=== PATIENT | female | born 1955 | race Caucasian/White ===

== ENCOUNTER 2018-04-16 08:16 | Emergency (ER) | payer OTHER, SELFPAY ==
[2018-04-16 08:18] VITALS: BP 159/98; PULSE 84; RESP 16; TEMP 36.7; O2SAT 99; BMI 34.9
--- NOTE | 2018-04-16 08:35 | ED.DCSUM_ITS ---
- ER Visit Summary Date of Service: 04/16/18 Chief Complaint: Facial swelling History of Present Illness: The patient is a 62 F who states that on Tuesday she had a root canal on the right lower premolar region. She states that on Tuesday (yesterday) she began to have pain and swelling. She states that the swelling is spreading along her gums and she feels like she is slurring her words. She notes swelling along the mandible and down into her neck. She denies any fevers. 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 She notes that yesterday and today she has had vomiting. She has a penicillin allergy. Physical Examination: Afebrile vital signs are stable noted hypertension Gen: Well-nourished well-developed Head: Normocephalic atraumatic Eyes: Perrl EOMI ENT: TMs clear no rhinorrhea moist mucous membranes the patient has no drooling. She is able to open her mouth and pull her lip to the side. I do not see a focal drainable abscess around the right lower premolar teeth. I do not appreciate any significant gum swelling. The floor the mouth is soft. There is swelling on the outside of the face at the mandible level. Neck: Supple no lymphadenopathy no JVD nontender CVS: Regular rate rhythm no murmurs normal S1-S2 Respiratory: No distress clear to auscultation bilaterally chest nontender Abdomen: Soft nontender nondistended normal bowel sounds no masses Extremity: Nontender no edema Skin: Normal color no rash Neuro: alert orientated ?3 CN II-XII intact normal strength gait cerebellar myself and nursing do not appreciate slurred speech that the patient is reporting. Emergency Department Course and Treatment: Patient will be started on clindamycin as well as Zofran. The patient feels that this is a wasted trip that she could have gotten a prescription from her doctor. Patient feels that something more should be done. She however does not know what that should be. At this point I do not know what more the emergency department can offer her. She is to see her dentist tomorrow. Impression: 1. Right lower tooth periapical abscess This note was generated with [employer] dictation software. It may contain incorrect words, spelling, and punctuation that were not noted in review of the chart prior to signing ED Disposition - Plan for ED Patient: Disposition: Home or Assisted Living Chief Complaint: Dental Instructions: ED Abscess Dental Prescriptions: Ondansetron [Zofran Odt] 4 mg PO Q8H PRN PRN #10 tab PRN Reason: Nausea Clindamycin HCl [Cleocin] 300 mg PO Q6H #40 cap Referrals: Gerardo Diana MD [Primary Care Provider] - Additional Instructions: See your dentist as soon as possible
--- NOTE | 2018-04-16 08:44 | NURSING ---
NO LW OR POA
== END 2018-04-16 09:00 | disposition home or self-care (01) ==
LOC: ED 08:43
PROVIDERS: Emergency Provider Emergency Medicine; Family Provider Family Medicine; PCP Family Medicine
DX: K04.7 Periapical abscess without sinus (principal); R11.2 Nausea with vomiting, unspecified; E11.9 Type 2 diabetes mellitus without complications; I10 Essential (primary) hypertension; K21.9 Gastro-esophageal reflux disease without esophagitis; M54.5 Low back pain; Z79.82 Long term (current) use of aspirin; Z79.899 Other long term (current) drug therapy; Z88.0 Allergy status to penicillin
CPT/HCPCS: 99282

== ENCOUNTER → 2019-08-31 09:32 | Outpatient (CLI) | payer OTHER, SELFPAY ==
--- NOTE | 2019-08-31 09:35 | RAD_ITS ---
PROCEDURE: Fluoroscopic guided right shoulder Injection DATE: August 31, 2019. INDICATION: Female, 63 years old. Chronic right shoulder pain. PHYSICIAN: René Wright M.D. MEDICATIONS: 12 mg of betamethasone and 4 cc of 1% lidocaine. 2% lidocaine administered subcutaneously for local anesthesia. ACCESS SITE: Right shoulder. NEEDLE: 22-gauge spinal needle. FLUOROSCOPY TIME (if supplied): (0:55) minutes/seconds FINDINGS: The risks, benefits, and alternatives to the procedure were explained to the patient. The specific risks of bleeding, infection, and neurovascular injury were detailed and accepted. Witnessed informed consent was obtained. A 22-gauge spinal needle was positioned under radiographic fluoroscopic localization. Approximately 2 cc of Isovue-300 instilled for localization purposes. Medication was then injected. The patient tolerated the procedure well without any immediate complications. The patient was placed supine with head elevated and returned to the floor in stable condition. RAD/Inj/Asp Aries Jt Should/Hip/Knee IMPRESSION: 1. Successful fluoroscopic guided right shoulder injection. Electronically Signed: René Wright, at 10:24 EST , Service support ,
== END ==
PROVIDERS: Family Provider Family Medicine; PCP Family Medicine; Referring Provider Specialist; Visit Provider Specialist
DX: M19.011 Primary osteoarthritis, right shoulder (principal); G89.29 Other chronic pain
CPT/HCPCS: 20610; 77002; J0702

== ENCOUNTER → 2019-12-21 08:50 | Outpatient (CLI) | payer OTHER, SELFPAY ==
--- NOTE | 2019-12-21 08:55 | RAD_ITS ---
PROCEDURE: Fluoroscopic guided right shoulder Injection DATE: December 21, 2019. INDICATION: Female, 64 years old. Chronic right shoulder pain. PHYSICIAN: René Wright M.D. MEDICATIONS: 12 mg of betamethasone and 4 cc of 1% lidocaine. 2% lidocaine administered subcutaneously for local anesthesia. ACCESS SITE: Right shoulder. NEEDLE: 22-gauge spinal needle. FLUOROSCOPY TIME (if supplied): (0:30) minutes/seconds FINDINGS: The risks, benefits, and alternatives to the procedure were explained to the patient. The specific risks of bleeding, infection, and neurovascular injury were detailed and accepted. Witnessed informed consent was obtained. A 22-gauge spinal needle was positioned under radiographic fluoroscopic localization. Approximately 2 cc of Isovue-300 instilled for localization purposes. Medication was then injected. The patient tolerated the procedure well without any immediate complications. RAD/Inj/Asp Aries Jt Should/Hip/Knee IMPRESSION: 1. Successful fluoroscopic guided right shoulder injection. Electronically Signed: René Wright, at 10:34 EST , Service support ,
== END ==
PROVIDERS: PCP Family Medicine; Referring Provider Specialist; Visit Provider Specialist
DX: M19.011 Primary osteoarthritis, right shoulder (principal)
CPT/HCPCS: 20610; 77002; Q9965; J0702

== ENCOUNTER → 2020-04-08 09:27 | Outpatient (CLI) | payer OTHER, SELFPAY ==
[2020-04-08 06:34] VITALS: BMI 34.8
[2020-04-08 09:49] LABS: Absolute Lymphocyte Count 1.85 X10^3/uL (0.83-4.51); Absolute Neutrophil Count 3.1 X10^3/uL (2.0-7.7); Basophil# 0.05 X10^3/uL; Basophil% 0.9 % (0-1); Eosinophil# 0.13 X10^3/uL; Eosinophils% 2.2 % (0-5); Hematocrit 39.6 % (37-47); Hemoglobin 12.4 g/dL (12.0-15.0); Lymphocyte # 1.85 X10^3/ul (4.0); Mean Corp Hgb Conc 31.3 g/dL (32-36); Mean Corpuscular Hgb 28.8 pg (27.0-32.0); Mean Corpuscular Volume 91.9 fL (81-99); Mean Platelet Vol. 9.3 fl (6.2-12.0); Monocyte# 0.61 X10^3/uL; Monocyte% 10.5 % (0-10); NRBC Flagged by Analyzer 0 % (0-5); Neutrophil # 3.14 X10^3/uL (2.7-7.7); Neutrophil % 54.2 % (47-70); Platelet Count 293 K/mm3 (150-450); RBC Distribution Width CV 13.1 % (11.6-14.6); RBC Distribution Width SD 44.1 fl (35.1-43.9); Red Blood Count 4.31 M/mm3 (4.2-5.4); White Blood Count 5.8 K/mm3 (4.4-11.0)
[2020-04-11 03:06] LABS: Alternaria tenuis <0.10 kU/L (Class 0); Ash, White <0.10 kU/L (Class 0); Aspergillus fumigatus <0.10 kU/L (Class 0); Bermuda Grass <0.10 kU/L (Class 0); Birch <0.10 kU/L (Class 0); Black Walnut <0.10 kU/L (Class 0); Cat Hair / Dander,Stand <0.10 kU/L (Class 0); Cedar, Mountain <0.10 kU/L (Class 0); Cladosporium herbarum <0.10 kU/L (Class 0); Cockroach, American <0.10 kU/L (Class 0); Cottonwood <0.10 kU/L (Class 0); D farinae Mite <0.10 kU/L (Class 0); D pteronyssinus <0.10 kU/L (Class 0); Dog Epithelia <0.10 kU/L (Class 0); Elm, American White <0.10 kU/L (Class 0); Immunoglobulin E 6 IU/mL (6-495); Maple/Box Elder <0.10 kU/L (Class 0); Mulberry, White <0.10 kU/L (Class 0); Oak, White <0.10 kU/L (Class 0); Pecan <0.10 kU/L (Class 0); Penicillium Notatum <0.10 kU/L (Class 0); Pigweed, Rough <0.10 kU/L (Class 0); Ragweed, Short/Common <0.10 kU/L (Class 0); Russian Thistle <0.10 kU/L (Class 0); Sheep Sorrel <0.10 kU/L (Class 0); Sycamore, American <0.10 kU/L (Class 0); Timothy Grass <0.10 kU/L (Class 0)
[2020-04-11 04:15] LABS: Mouse Urine <0.10 kU/L (Class 0)
[2020-04-12 03:06] LABS: Aspirgillus flavus Negative (Neg:<1:1); Aspirgillus fumigatus Negative (Neg:<1:1); Aspirgillus niger Negative (Neg:<1:1)
[2020-04-12 12:21] LABS: B. pertussis IgG 3.68 index (0.00-0.94); B. pertussis IgM < 1.0 index (0.0-0.9); Immunoglobulin E 6 IU/mL (6-495)
== END ==
PROVIDERS: PCP Family Medicine; Referring Provider Internal Medicine Critical Care Medicine; Visit Provider Internal Medicine Critical Care Medicine
DX: R05 Cough (principal)
CPT/HCPCS: 36415; 82785; 85025; 86003; 86606

== ENCOUNTER → 2020-04-22 08:27 | Outpatient (CLI) | payer OTHER, SELFPAY ==
[2020-04-08 06:34] VITALS: BMI 34.8
[2020-04-11 09:00] VITALS: BMI 34.8
--- NOTE | 2020-04-22 14:19 | PFTCOMP ---
COMPLETE PULMONARY FUNCTION TEST INTERPRETATION Brief HPI: Patient is a 64 year old female, currently under the care of Dr. Williamson, who presents to [facility] for complete pulmonary function tests secondary to diagnosis of cough. Respiratory therapist reports good effort and reproducible results. Interpretation: Forced expiration spirometry shows no large airways obstructive ventilatory defect with an FEV1 of 80% predicted. There is no significant bronchodilator response by strict ATS criteria. Spirograms are of good quality and plateau normally. The respiratory flow volume loop shows a normal pattern. Lung volumes by body plethysmography show a normal total lung capacity at 5.64 L, 96% predicted. All other lung volumes are within normal limits. Diffusion capacity by carbon monoxide is decreased at 54% predicted. The airway resistance is normal. No previous pulmonary function tests were available for review. Impression: Isolated reduction diffusion capacity and a pattern consistent with pulmonary vascular disorder.
== END ==
PROVIDERS: PCP Family Medicine; Referring Provider Internal Medicine Critical Care Medicine; Visit Provider Internal Medicine Critical Care Medicine
DX: R05 Cough (principal)
CPT/HCPCS: 94060; 94726; 94729

== ENCOUNTER 2020-05-02 07:16 | Day surgery (SDC) | payer OTHER, SELFPAY ==
[2020-04-11 09:00] VITALS: BMI 34.8
--- NOTE | 2020-04-11 09:10 | HP_ITS ---
Intake Vital Signs 04/11/20 BMI 34.8 04/11/20 Height 5 ft 9 in 04/11/20 Weight: 236 lb 04/11/20 BMI 34.8 04/11/20 BP 149/83 H 04/11/20 Blood Pressure Location Rt brachial 04/11/20 Position Sitting 04/11/20 Respiration 18 04/11/20 Pulse 65 04/11/20 Pulse Source Monitor 04/11/20 Temp 98.0 F 04/11/20 Temp Source Temporal 04/11/20 Pulse Oximetry (%) 97 04/11/20 Oxygen Delivery Method room air Intake Visit Reasons: GERD, EGD Chief Complaint: L total Shoulder Coupon Clerk Required: No Is patient in pain?: No Allergies adhesive tape Allergy (Verified 04/11/20 08:53) blisters hydromorphone HCl [From Dilaudid] Allergy (Verified 04/11/20 08:53) Hives latex Allergy (Verified 04/11/20 08:53) Rash Penicillins Allergy (Verified 04/11/20 08:53) Hives codeine Adverse Reaction (Verified 04/11/20 08:53) Nausea Medications Meloxicam [Mobic] 15 mg PO DAILY PRN 08/05/17 [History Confirmed 04/11/20] Omeprazole 40 mg PO DAILY 08/05/17 [History Confirmed 04/11/20] metformin 500 mg tablet 500 mg PO DAILY 04/07/20 [History Confirmed 04/11/20] albuterol sulfate 90 mcg/actuation aerosol inhaler 2 puff INHALATION Q4H PRN #1 ea 04/08/20 [Rx Confirmed 04/11/20] fluticasone furoate 200 mcg-vilanterol 25 mcg/dose inhalation powder 1 inh INHALATION DAILY #1 ea 04/08/20 [Rx Confirmed 04/11/20] levothyroxine 112 mcg tablet 112 mcg PO DAILY tab 04/08/20 [History Confirmed 04/11/20] losartan 50 mg tablet 50 mg PO DAILY 04/08/20 [History Confirmed 04/11/20] gabapentin 300 mg capsule 300 mg PO QHS cap 04/11/20 [History Confirmed 04/11/20] PFSH Medical History Ulcer (Acute) Hx of blood clots (Acute) Thyroid disorder (Acute) Arthritis (Acute) Dysphagia (Acute) Chronic coughing (Chronic) Fatigue (Acute) Vaginal prolapse (Acute) Snoring (Acute) Severe vulvar dysplasia (Acute) Lumbosacral neuritis (Acute) Disc displacement, lumbar (Acute) Hypothyroidism (Acute) DVT (deep venous thrombosis) (Acute) Diabetes mellitus (Acute) Valdez's esophageal ulceration (Acute) Backache, unspecified (Acute) Acute esophagitis (Acute) Surgical History History of vulvar vestibulectomy (Resolved) History of hysterectomy (Resolved) History of shoulder surgery (Resolved) History of tonsillectomy (Resolved) History of sacrocolpopexy (Resolved) History of esophagogastroduodenoscopy (EGD) (Resolved) biopsy of vulva (Resolved) Family History Mother Cataract Cancer Liver Father Diabetes Hypertension Heart disease Cataract Cancer Lung Sister Diabetes DVT (deep venous thrombosis) CVA (cerebral vascular accident) Heart disease Brother Diabetes Aunt Cancer Thyroid Social History (Updated 04/11/20 @ 09:[address] Trell Roy MD) Smoking Status: Former smoker quit date: 08/15/13 pack-years: 1 Tobacco: How many years used: 25 alcohol intake: current alcohol intake frequency: a few times a week Alcohol type: beer, wine substance use type: does not use caffeine: Yes what type of physical activity do you participate in: other frequency: does not exercise seatbelt use: always HPI HPI HPI: RODRÍGUEZ KOWALSKI, is a 64 F who presents to the office today for HPI HPI Surgical H&P: Yes HPI: RODRÍGUEZ KOWALSKI, is a 64 F who presents to the office today for GERD as well as a cough. The patient was sent here by pulmonary because she has an ongoing cough which he believes is related to reflux. She reports the cough gets worse in the spring and fall but she has never taken any allergic medicines. She is on a daily PPI that she has been recently taking twice daily and she has severe reflux especially with acidic foods. She also reports occasional regurgitation especially when laying down and waking up in the morning. ROS General General: Yes weight change and fatigue Endo Endocrine: Yes thyroid disease and diabetes mellitus Musc Musculoskeletal: Yes back problems and arthritis Cardio Cardiovascular: Yes high blood pressure; no murmur, pacemaker, heart disease, atrial fibrillation, heart attack, heart stent, palpitations, shortness of breat with exertion or chest pain Psych Psychiatric: No depression or anxiety Resp Respiratory: No shortness of breath, No sleep apnea, Yes cough, No COPD, No asthma, No emphysema, No wheezing Gastro Gastrointestinal: No abdominal pain, No nausea or vomiting, No diarrhea, No constipation, No blood in stool, Yes acid reflux, No hemorrhoids, Yes ulcers, No gallbladder problem, No black,tarry stools Jaime Hematologic: No blood thinners, Yes blood clots Exam Const General: cooperative Orientation: alert, oriented x3 Resp Effort & Inspection: normal respiratory effort Auscultation: clear to auscultation bilaterally Cardio Rate: regular rate Rhythm: regular rhythm Heart Sounds: no murmurs GI Inspection: non-distended Palpation: soft, nontender Assessment & Plan Problems 1. 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 Gastroesophageal reflux disease with esophagitis K21.0 Plan Patient has longstanding GERD. She takes a PPI and she has been taking it twice a day lately. She reports that she had an EGD about 5 years ago. She was found to have Valdez's the EGD prior to that. She is having cough as well and pulmonology believes this may be related to her reflux. I informed her that the best thing she would be able to do would be to lose some weight and that would help with GERD. I did offer the patient an EGD to evaluate for esophagitis as well as Valdez's esophagus. I explained endoscopy in detail to the patient. I explained the risks including but not limited to stroke or heart attack with anesthesia, perforation of the GI tract, bleeding, infection. I explained that any of these could necessitate further emergency surgery. The patient understands and all questions were answered sufficiently. The patient wishes to proceed with procedure. 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 delaying the surgery/procedure. It is not possible to know either the risk of delaying the surgery or procedure or chance of getting an infection with perfect accuracy, but a joint decision was made between the patient and the surgeon/proceduralist ?to proceed at this time with the scheduled surgery/procedure as indicated on the consent form. 04/11/20 0910 <Electronically signed by Trell west MD> Date _ Trell Roy MD I have re-examined the patient. There are no clinical changes since date of exam.
[2020-05-02] VITALS (7 sets, daily range): BP systolic 120–128; BP diastolic 60–79; PULSE 16–73; RESP 14–16; TEMP 36.1; O2SAT 94–96; BMI 33.8
[2020-05-02] MEDS: Lactated Ringers 1,000 ML 100 ML IV (08:14)
[2020-05-02 08:30] LABS: Bedside Glucose 114 mg/dL (70-110)
--- NOTE | 2020-05-02 08:30 | IMM_PTH ---
PATIENT: RODRÍGUEZ KOWALSKI LOC: EN U#:[id number] AGE/SX: 64/F ROOM: RE05/02/[address]: Dr. Trell Roy MD : 1955 BED: DIS: 05/02/2020 SPEC #: [id number] RECD: 05/02/20 13:11 STATUS: AINSLEY REQ #: [id number] ANGELITO: 05/02/20 08:[address]: Trell Roy DEPT: IMMUNOHISTOCHEMISTRY RECD BY: Deanna Garrett ENTERED: 05/02/20 13:11 SP TYPE: IMMUNO OTHR DR: Dr. Gerardo Diana MD Tissues: Stomach, NOS Procedures: H Pylori (initial) PHYSICIAN & INSTITUTION [place] [address] SPECIMEN INFORMATION: Tissue Source: Antrum biopsy Clinical Info: GERD, Valdez's Specimen Number: [id number] CPT code: 26765 METHODOLOGY: Deparaffinized sections of prefer/formalin-fixed tissue or PAP/DQ stained slides are incubated with monoclonal/polyclonal antibodies/oligonucleotide probes. Localization is made via biotin free immunoperoxidase method. Appropriate controls are performed and reacted as expected. Results on target cell population are indicated in the following table: RESULTS: ANTIBODY / CLONE RESULT H Pylori (polyclonal) negative These tests were developed and their performance characteristics determined by [facility]. They may not have been cleared or approved by the U.S. Food and Drug Administration. The FDA has determined that such clearance or approval is not necessary. INTERPRETATION: Antrum biopsy: Negative for Helicobacter pylori organisms. SJ:derrick 05/05/20
--- NOTE | 2020-05-02 08:30 | EGD_PTH ---
PATIENT: RODRÍGUEZ KOWALSKI LOC: EN U#:[id number] AGE/SX: 64/F ROOM: RE05/02/[address]: Dr. Trell Roy MD : 1955 BED: DIS: 05/02/2020 SPEC #: [id number] RECD: 05/02/20 11:24 STATUS: AINSLEY TIFFANY #: [id number] ANGELITO: 05/02/20 08:[address]: Trell Roy DEPT: SURGICAL PATHOLOGY RECD BY: Ed Montes ENTERED: 05/02/20 11:54 SP TYPE: EGD BIOPSY OTHR DR: Dr. Gerardo Diana MD Tissues: Gastric mucous membrane Procedures: Surgery Specimen Level IV HEADER OPERATION: EGD ([facility]) PRE-OP DIAGNOSIS: GERD, Valdez's TISSUE SUBMITTED: Antrum biopsy for histo and H. pylori MICROSCOPIC DIAGNOSIS Gastric antrum, biopsy: Mild chronic gastritis. See comment. AM:derrick 05/05/20 COMMENT The results of immunohistochemistry for Helicobacter pylori will be reported separately ([id number]). MICROSCOPIC DESCRIPTION Slides are reviewed. GROSS DESCRIPTION Received in fixative is one container labeled with the patient's name and designated antrum biopsy. The specimen consists of two irregular fragments of light hall soft tissue that in aggregate measure 0.6 x 0.4 x 0.1 cm. The specimen is totally submitted in one cassette. / SJ:derrick 05/02/20 TC:3 CPT: 25175
--- NOTE | 2020-05-02 08:43 | OP.CCLET_ITS ---
05/02/2020 Gerardo Diana [address] [place] [address] Re : Upper GI endoscopy procedure for Danielle Pink Dear Dr. Diana This procedure was performed on Saturday, May 02, 2020. My impressions and recommendations are as follows: Impressions : - Normal esophagus. - Normal stomach. - Normal examined duodenum. - Biopsies were taken with a cold forceps for Helicobacter pylori testing. Recommendations : - Await pathology results. - Discharge patient to home. - Resume previous diet. - Continue present medications. My findings are described in the full procedure note, which is enclosed. If I can be of further assistance, please feel free to contact me at Doctor phone number(s): , Work: . Sincerely, Trell Roy MD 05/02/2020 8:42:45 AM This report has been signed electronically.
--- NOTE | 2020-05-02 08:43 | OP.EGD_ITS ---
Patient Name: Danielle Pink Procedure Date: 05/02/2020 8:20 AM Date of : 1955 Age: 64 Procedure: Upper GI endoscopy Indications: Esophageal reflux Providers: Trell Roy MD Referring MD: Gerardo Diana Medicines: Monitored Anesthesia Care Patient Profile: This is a 64 year old female. Refer to note in patient chart for documentation of history and physical. Complications: No immediate complications. Estimated blood loss: Minimal. Procedure: Pre-Anesthesia Assessment: - Prior to the procedure, a History and Physical was performed, and patient medications and allergies were reviewed. The patient's tolerance of previous anesthesia was also reviewed. The risks and benefits of the procedure and the sedation options and risks were discussed with the patient. All questions were answered, and informed consent was obtained. Prior Anticoagulants: The patient has taken no previous anticoagulant or antiplatelet agents. After reviewing the risks and benefits, the patient was deemed in satisfactory condition to undergo the procedure. After obtaining informed consent, the endoscope was passed under direct vision. Throughout the procedure, the patient's blood pressure, pulse, and oxygen saturations were monitored continuously. The gastroscope was introduced through the mouth, and advanced to the third part of duodenum. The upper GI endoscopy was accomplished without difficulty. The patient tolerated the procedure well. Scope In: 8:32:11 AM Scope Out: 8:35:44 AM Total Procedure Duration Time 0 hours 3 minutes 33 seconds Findings: The esophagus was normal. The stomach was normal. The examined duodenum was normal. Biopsies were taken with a cold forceps in the gastric antrum for Helicobacter pylori testing. A small hiatal hernia was present. Impression: - Normal esophagus. - Normal stomach. - Normal examined duodenum. - Biopsies were taken with a cold forceps for Helicobacter pylori testing. Recommendation: - Await pathology results. - Discharge patient to home. - Resume previous diet. - Continue present medications. Procedure Code(s): --- Professional --- 52705, Esophagogastroduodenoscopy, flexible, transoral; with biopsy, single or multiple Diagnosis Code(s): --- Professional --- K21.9, Gastro-esophageal reflux disease without esophagitis CPT copyright 2017 [employer]. All rights reserved. The codes documented in this report are preliminary and upon laserist review may be revised to meet current compliance requirements. Trell Roy MD 05/02/2020 8:42:45 AM This report has been signed electronically. Number of Addenda: 0 Note Initiated On: 05/02/2020 8:20 AM
== END 2020-05-02 09:35 | disposition home or self-care (01) ==
LOC: EN 07:16 → AC 07:18
PROVIDERS: Anesthesiology; PCP Family Medicine; Referring Provider Family Medicine; Visit Provider Surgery
PROC: 0DJ08ZZ Inspection of Upper Intestinal Tract, Via Natural or Artificial Opening Endoscopic (ICD-10-PCS; CPT 43235; principal; 2020-05-02 08:25)
DX: K29.50 Unspecified chronic gastritis without bleeding (principal); K22.10 Ulcer of esophagus without bleeding; K21.0 Gastro-esophageal reflux disease with esophagitis; K44.9 Diaphragmatic hernia without obstruction or gangrene; R13.10 Dysphagia, unspecified; Z11.59 Encounter for screening for other viral diseases; R05 Cough; E11.9 Type 2 diabetes mellitus without complications; I10 Essential (primary) hypertension; E07.9 Disorder of thyroid, unspecified; Z79.84 Long term (current) use of oral hypoglycemic drugs; Z79.1 Long term (current) use of non-steroidal anti-inflammatories (NSAID); Z79.899 Other long term (current) drug therapy; Z78.0 Asymptomatic menopausal state; Z86.711 Personal history of pulmonary embolism; Z86.718 Personal history of other venous thrombosis and embolism; Z87.891 Personal history of nicotine dependence
CPT/HCPCS: 43239; 82962; 87635; 88305; 88342; G2023; J7120; J2405; U0003

== ENCOUNTER → 2020-05-09 10:37 | Outpatient (CLI) | payer OTHER, SELFPAY ==
[2020-05-02 07:54] VITALS: BMI 33.8
== END ==
PROVIDERS: PCP Family Medicine; Referring Provider Internal Medicine Critical Care Medicine; Visit Provider Internal Medicine Critical Care Medicine
DX: R05 Cough (principal)
CPT/HCPCS: 36415; 87070; 87798

== ENCOUNTER → 2020-05-23 14:24 | Outpatient (CLI) | payer OTHER, SELFPAY ==
[2020-05-02 07:54] VITALS: BMI 33.8
[2020-05-24 08:55] LABS: SARS-COV-2 TOTAL ABS Nonreactive (Nonreactive)
== END ==
PROVIDERS: PCP Family Medicine; Referring Provider Nurse Practitioner Acute Care; Visit Provider Nurse Practitioner Acute Care
DX: R05 Cough (principal)
CPT/HCPCS: 36415; 86769

== ENCOUNTER → 2020-06-04 14:08 | Outpatient (CLI) | payer OTHER, SELFPAY ==
[2020-05-02 07:54] VITALS: BMI 33.8
--- NOTE | 2020-06-04 14:09 | RAD_ITS ---
STUDY: X-RAY CHEST REASON FOR EXAM: Female, 64 years old. Cough, shortness of breath, and chest pressure since November. TECHNIQUE: PA and lateral views of the chest. COMPARISON: None. FINDINGS: The lungs are clear and expanded. There is no demonstrated pleural abnormality. Normal size heart. Normal mediastinum and jenaro. Normal visualized pulmonary arteries. Normal visualized aortic arch and descending thoracic aorta. There are diffuse degenerative changes of the visualized thoracic spine. Degenerative arthrosis in the right shoulder, replaced left glenohumeral joint free of complication There is no demonstrated abnormality of the visualized soft tissue structures of the upper abdomen. RAD/Chest PA and Lateral IMPRESSION: No acute pulmonary process Electronically Signed: Kei Cordova MD at 14:44 EDT , Service support ,
== END ==
PROVIDERS: PCP Family Medicine; Referring Provider Nurse Practitioner Acute Care; Visit Provider Nurse Practitioner Acute Care
DX: R05 Cough (principal)
CPT/HCPCS: 71046

== ENCOUNTER → 2020-06-13 06:38 | Outpatient (CLI) | payer OTHER, SELFPAY ==
[2020-05-02 07:54] VITALS: BMI 33.8
--- NOTE | 2020-06-13 06:39 | CT_ITS ---
STUDY: CT CHEST WITHOUT CONTRAST REASON FOR EXAM: Female, 64 years old. COUGH AND SOB X 3 MONTHS RADIATION DOSAGE (If Supplied By Facility): CTDIvol = ( 19.89 ) mGy, DLP = ( 740.44 ) mGycm TECHNIQUE: Transaxial imaging was performed without the administration of intravenous contrast material. Multiplanar coronal and sagittal images were reformatted. Individualized dose optimization techniques were used for this CT. COMPARISON: Comparison is made with prior chest radiograph dated 06/04/2020. FINDINGS: Small benign-appearing bilateral axillary lymph nodes. Minimal increase in markings at the lung bases suggestive of a mild scarring. There is no demonstrated pleural abnormality. There are calcifications of the coronary arteries. There are multiple small lymph nodes within the mediastinum, which are normal in size and morphology most compatible with reactive lymph hyperplasia. Normal hilar regions. Normal unenhanced pulmonary arteries. There is mild atherosclerotic calcification of the aortic arch . There are mild degenerative changes of the thoracic spine. The patient is status post left shoulder replacement. Fatty infiltration of the liver. Small hiatal hernia. CT/Chest without Contrast IMPRESSION: Mild degree of linear scarring at the lung bases. Electronically Signed: René Wright, at 9:53 EDT , Service support ,
== END ==
PROVIDERS: PCP Family Medicine; Referring Provider Nurse Practitioner Acute Care; Visit Provider Nurse Practitioner Acute Care
DX: R05 Cough (principal)
CPT/HCPCS: 71250

== ENCOUNTER → 2020-06-24 07:49 | Outpatient (CLI) | payer OTHER, SELFPAY ==
[2020-05-02 07:54] VITALS: BMI 33.8
[2020-06-24 08:15] VITALS: PULSE 65; PULSE 74; PULSE 91; PULSE 92; PULSE 93; PULSE 96; O2SAT 94; O2SAT 95; O2SAT 96
--- NOTE | 2020-06-24 13:51 | PCM.PSN.6M ---
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 FIO2 (% Oxygen) 21 Assistive device used: None Pre-test Oxygen Delivery Method Room Air Pulse Ox (%) 95 Pulse Rate (60-100 beats/min) 65 Dyspnea Madeleine Scale (0-10) 0 Exertion Madeleine Scale (6-20) 6 1st minute Oxygen Delivery Method Room Air Pulse Ox (%) 94 Pulse Rate (60-100 beats/min) 91 2nd minute Oxygen Delivery Method Room Air Pulse Ox (%) 95 Pulse Rate (60-100 beats/min) 92 3rd minute Oxygen Delivery Method Room Air Pulse Ox (%) 94 Pulse Rate (60-100 beats/min) 92 4th minute Oxygen Delivery Method Room Air Pulse Ox (%) 95 Pulse Rate (60-100 beats/min) 96 5th minute Oxygen Delivery Method Room Air Pulse Ox (%) 95 Pulse Rate (60-100 beats/min) 92 6th minute Oxygen Delivery Method Room Air Pulse Ox (%) 95 Pulse Rate (60-100 beats/min) 93 Post-test Oxygen Delivery Method Room Air Pulse Ox (%) 96 Pulse Rate (60-100 beats/min) 74 Dyspnea Madeleine Scale (0-10) 2 Exertion Madeleine Scale (6-20) 10 Full Laps Walked 21 Partial Lap, Number of Tiles Walked 0 Total Distance Walked (ft) 1239 - Interpretation Interpretation: The patient ambulated 1239 feet over the course of 6 minutes beginning on room air without assistive devices or breaks. Pretesting oxygen saturation was noted to be 95% on room air. With ambulation, the anna oxygen saturation was 94%. There was no significant exertional oxygen desaturation. - Recommendations Recommendations: There is no indication for the use of supplemental oxygen at this time.
== END ==
PROVIDERS: PCP Family Medicine; Referring Provider Nurse Practitioner Acute Care; Visit Provider Nurse Practitioner Acute Care
DX: R06.02 Shortness of breath (principal)
CPT/HCPCS: 94618

== ENCOUNTER → 2020-06-27 12:24 | Outpatient (CLI) | payer OTHER, SELFPAY ==
[2020-05-02 07:54] VITALS: BMI 33.8
--- NOTE | 2020-06-27 12:26 | CT_ITS ---
STUDY: CT RIGHT SHOULDER REASON FOR EXAM: Female, 64 years old. RT SHOULDER REPLACEMENT surgery scheduled 09/02/20. Pt has lt shoulder replacement already. RADIATION DOSAGE (If Supplied By Facility): CTDIvol = ( 29.12 ) mGy, DLP = ( 1144.40 ) mGycm TECHNIQUE: The patient was scanned in a multi detector CT scanner. High resolution transaxial imaging was performed without the administration of intravenous contrast material. Sagittal and coronal images were reconstructed. Individualized dose optimization techniques were used for this CT. COMPARISON: None. FINDINGS: There is severe osteoarthritis, with severe articular joint space narrowing, osteoarthritic spurring, articular remodeling, and with articular erosions. Subchondral geodes are seen in the humeral head as well as in the subcortical region of the glenoid. Degenerative spurring is seen along the inferior medial aspect of the humeral head as well as the anterior aspect of the glenoid. Normal coracoid process. Normal visualized lateral clavicle. There is mild osteoarthritis with articular joint space narrowing. There is a Type II morphology (curved), with a neutral orientation. Normal visualized muscles and soft tissue structures. CT/Extremity Upper without Contra IMPRESSION: Moderate degree of osteoarthritis involving the glenohumeral joint with bony spur formation of the humeral head and the glenoid. Mild degree of degenerative changes of the common clavicular joint. Electronically Signed: René Wright, at 13:06 EDT , Service support ,
== END ==
PROVIDERS: PCP Family Medicine; Referring Provider Specialist; Visit Provider Specialist
DX: M19.011 Primary osteoarthritis, right shoulder (principal)
CPT/HCPCS: 73200

== ENCOUNTER → 2022-05-26 | Outpatient (CLI) | payer OTHER, SELFPAY ==
--- NOTE | 2022-05-26 15:04 | US_ITS ---
RENAL ULTRASOUND CLINICAL HISTORY: UTI. TECHNIQUE: Verdugo scale and limited color imaging of the kidneys, bladder, inferior vena cava, and aorta. COMPARISON: None FINDINGS: The right kidney measures 10.4 cm. The echogenicity is normal. There is no hydronephrosis or perinephric collection. There is no focal renal mass or calculus seen. The left kidney measures 9.9 cm. The echogenicity is normal. There is no hydronephrosis or perinephric collection. There is no focal renal mass or calculus seen. Bladder is decompressed, Limited evaluation. Prevoid bladder volume = 48 cc. Nonspecific cystic structure in the posterior right aspect of the urinary bladder measuring up to 17 mm. Partially visualized hepatic parenchyma is diffusely hyperechoic. US/Kidney and Bladder IMPRESSION: 1. No hydronephrosis. 2. Hepatic steatosis. 3. Decompressed urinary bladder, limiting evaluation. 4. Nonspecific cystic structure at the posterior right aspect of the urinary bladder, may represent layering debris or ureterocele. Attention on follow-up recommended. Electronically Signed: Parker Ragland MD at 4:23 EDT ,
== END | disposition home or self-care (01) ==
PROVIDERS: PCP Family Medicine; Visit Provider Urology
DX: N39.0 Urinary tract infection, site not specified (principal)
CPT/HCPCS: 76770

== ENCOUNTER → 2022-06-09 | Outpatient (CLI) | payer OTHER, SELFPAY ==
--- NOTE | 2022-06-09 14:30 | CT_ITS ---
STUDY: CT ABDOMEN AND PELVIS WITH AND WITHOUT CONTRAST REASON FOR EXAM: Female, 66 years old. PELVIC ABSCESS RADIATION DOSAGE (If Supplied By Facility): CTDIvol = ( 26.12 ) mGy, DLP = ( 4072.34 ) mGycm TECHNIQUE: Transaxial images were obtained from the dome of the diaphragm to the symphysis pubis without oral contrast. IV 100mL Isovue-370 was administered. Sagittal and coronal images were reconstructed. Individualized dose optimization techniques were used for this CT. COMPARISON: None. FINDINGS: The visualized lung bases are unremarkable. The visualized portions of the heart are within normal limits. There is decreased attenuation of the liver consistent with steatosis. There are small gallstones. Normal spleen. Normal pancreas. Normal bilateral adrenal glands. Normal right kidney. Normal left kidney. There is a small hiatal hernia. Normal small intestine. Normal colon. The appendix is visualized and appears normal. There is diffuse atherosclerotic calcification of the abdominal aorta, without a demonstrated aneurysm. Normal inferior vena cava. Normal retroperitoneum. Normal urinary bladder. There is absence of the uterus consistent with a prior hysterectomy. There is a small umbilical hernia containing fat. Small right inguinal hernia containing fat. Small benign-appearing bilateral inguinal lymph nodes. There are degenerative changes of the visualized lumbar spine. CT/CT Abd/Pelvis W/WO Contrast IMPRESSION: Fatty infiltration of the liver. Small gallstones. Electronically Signed: René Wright MD at 15:41 EDT ,
[2022-06-09 15:00] LABS: EGFR FINGERSTICK > 60.0000 mL/min (>60)
== END | disposition home or self-care (01) ==
LOC: CT 14:28
PROVIDERS: PCP Family Medicine; Referring Provider Urology; Visit Provider Urology
DX: Z01.812 Encounter for preprocedural laboratory examination (principal); K65.1 Peritoneal abscess; R93.49 Abnormal radiologic findings on diagnostic imaging of other urinary organs; Z87.440 Personal history of urinary (tract) infections
CPT/HCPCS: 74178; Q9967

== ENCOUNTER 2022-09-02 10:48 | Day surgery (SDC) | payer OTHER, SELFPAY ==
--- NOTE | 2022-09-02 | VAGW_PTH ---
PATIENT: RODRÍGUEZ KOWALSKI LOC: [facility] [place] U#:[id number] AGE/SX: 66/F ROOM: RE09/02/[address]: Dr. Aranza Richardson MD : 1955 BED: DIS: 09/02/2022 SPEC #: [id number] RECD: 09/02/22 14:39 STATUS: AINSLEY REJaguar #: [id number] ANGELITO: 09/02/22 00:[address]: Aranza Richardson DEPT: SURGICAL PATHOLOGY RECD BY: Bryant Moore ENTERED: 09/03/22 09:57 SP TYPE: VAG WALL OTHR DR: Dr. Gerardo Diana MD Tissues: Vagina, NOS Procedures: Surgery Specimen Level III HEADER OPERATION: Exam under anesthesia, excision foreign body PRE-OP DIAGNOSIS: Exposure vaginal mesh through vaginal wall, urethral stricture, vaginal atrophy TISSUE SUBMITTED: Vaginal mesh MICROSCOPIC DIAGNOSIS Vaginal mesh: Pieces of mesh with adherent soft tissue with acute and chronic inflammation. SJ:derrick 09/06/2022 MICROSCOPIC DESCRIPTION Slides are reviewed. GROSS DESCRIPTION Received in fixative is one container labeled with the patient's name and designated vaginal mesh. The specimen consists of two pieces of congested tissue with mesh measuring 2.5 x 1.5 x 0.2 cm. The entire specimen including mesh is submitted in one cassette. / EDWARD:derrick 09/03/2022 TC:2 CPT: 84163
[2022-09-02 11:22] VITALS: BP 165/73; PULSE 55; RESP 18; TEMP 36.2; O2SAT 99; BMI 35.9
[2022-09-02] MEDS: Lactated Ringers 1,000 ML 15 ML IV (11:30)
[2022-09-02 12:25] LABS: Bedside Glucose 96 mg/dL (74-106)
--- NOTE | 2022-09-02 13:15 | DCINST_ITS ---
Discharge Instructions Diet Discharge Diet: No restrictions Activity Discharge Activity: Return to Normal Activity Dressing / Incision Call your doctor if your incision/area has: Continuous Slow Oozing, Sudden Increased Bleeding and Foul Smelling Discharge Call your doctor if you observe: Fever of 101 or Higher, Inability to urinate and Inability to have a bowel movement Follow Up Care Please Follow Up With: Aranza Richardson MD When: call office for appt Test Results: Test results from this visit will be discussed in further detail at your follow- up appointment, if applicable. Discharge Plan Admission Attending Provider: Aranza Richardson Primary Care Provider: Gerardo Diana Discharge Orders/Prescriptions Prescriptions: New hydrocodone-acetaminophen [hydrocodone-acetaminophen] 5-325 mg tablet 1 tab PO Q4H PRN PRN (Reason: Pain) 3 Days Qty: 6 0RF Continued metformin 500 mg tablet 500 mg PO DAILY levothyroxine [Synthroid] 112 mcg tablet 112 mcg PO DAILY losartan 50 mg tablet 50 mg PO 1200 gabapentin 300 mg capsule 300 mg PO QHS Rx Instructions: FOR 180 DAYS albuterol sulfate 90 mcg/actuation HFA aerosol inhaler 2 puff inhalation Q4H PRN (Reason: shortness of breath or wheezing) Qty: 1 3RF Rx Instructions: administer with spacer meloxicam 15 MG tablet 15 mg PO DAILY PRN (Reason: Pain) omeprazole 40 MG capsule,delayed release(DR/EC) 40 mg PO 1700 Referrals / Follow Up: Gerardo Diana MD [Primary Care Provider] - Disposition Disposition (needs filled in before D/C Order can be placed): Home, Self Care
--- NOTE | 2022-09-02 13:16 | PCM.OPRPT ---
Report of Operation Date of Procedure: 09/02/22 Pre-Operative Diagnosis: vaginal mesh exposure, urethral stricture in female, urinary tract infection, dyspareunia Post-Operative Diagnosis: same Surgery/Procedure Performed:: urethral dilation, cystoscopy, pelvic exam under anesthesia Surgeon: Aranza Richardson Type of Anesthesia: MAC Specimen's removed: vaginal mesh Description of Procedure: The patient is a 66-year-old female with previous mesh procedures having continued issues with vaginitis, urinary tract infections and urethral stricture found on exam in the office. Informed consent was obtained. The patient was taken to the operating room and placed on the operating room table. Anesthesia monitored the head, neck, airway, IV access and vital signs throughout the case. Once anesthesia was appropriate ministered, the patient was placed into dorsolithotomy position was prepped and draped in usual sterile fashion. The urethra was dilated from 14 [place] to 30 [place] without difficulty. There was mild cracking of the urethra. The cystoscope was inserted through the urethra into the urinary bladder under direct visualization. The bladder showed moderate hypertrophy with mild trabeculation and a stage I-II cystocele. No evidence of mesh or foreign body in the urinary bladder or urethra. Bilateral ureteral orifices were in the correct anatomic position. There were no masses or areas of erythema or ulceration identified. At this time the cystoscope was inserted into the vaginal vault where an area of mesh exposure was visualized approximately 2 cm in length and approximately half centimeter in width. Using Metzenbaums, the mesh that was clearly exposed was removed from the vagina and sent to pathology. On examination, the cuff of the vagina remain closed. At this time the patient was awakened and taken to the recovery room in good condition. There were no complications during this procedure. Grafts/Implants Used: none Complications none Admit VTE Documentation VTE Present on Admission: Yes VTE Mechan Device Prophylaxis: SCD's VTE Pharm Prophylaxis ordered?: No Reason prophylaxis not ordered:: Treatment Not Indicated
[2022-09-02] MEDS: Cefazolin 2 GM in 0.9% Normal Saline 100 ML IV (13:20)
[2022-09-02 13:55] VITALS: BP 129/62; BP 165/73; PULSE 72; RESP 18; TEMP 36.2; O2SAT 95
[2022-09-02 14:00] VITALS: BP 136/73; BP 165/73; PULSE 62; RESP 18; O2SAT 98
[2022-09-02 14:05] VITALS: BP 150/81; BP 165/73; PULSE 62; RESP 18; O2SAT 99
[2022-09-02 14:09] VITALS: BP 120/77; BP 165/73; PULSE 57; RESP 18; TEMP 36.6; O2SAT 98
[2022-09-02] MEDS: HYDROcodone Bitartrate/Apap 5/325 Tablet PO (15:00)
[2022-09-02 15:06] VITALS: BP 165/73
== END 2022-09-02 15:08 | disposition home or self-care (01) ==
LOC: SDC 10:49 → AC 10:52
PROVIDERS: PCP Family Medicine; Referring Provider Urology; Visit Provider Urology
PROC: 0TJB8ZZ Inspection of Bladder, Via Natural or Artificial Opening Endoscopic (ICD-10-PCS; CPT 57410; principal; 2022-09-02 12:25)
DX: T83.721A Exposure of implanted vaginal mesh into vagina, initial encounter (principal); E11.9 Type 2 diabetes mellitus without complications; N35.92 Unspecified urethral stricture, female; N94.10 Unspecified dyspareunia; N39.0 Urinary tract infection, site not specified; I10 Essential (primary) hypertension; E07.9 Disorder of thyroid, unspecified; N32.89 Other specified disorders of bladder; N81.10 Cystocele, unspecified; Y83.8 Other surgical procedures as the cause of abnormal reaction of the patient, or of later complication, without mention of misadventure at the time of the procedure; Z79.1 Long term (current) use of non-steroidal anti-inflammatories (NSAID); Z79.84 Long term (current) use of oral hypoglycemic drugs; Z79.890 Hormone replacement therapy; Z79.899 Other long term (current) drug therapy
CPT/HCPCS: 57415; 53665; 00940; 82962; 88304; 88305; J7120; J2405

== ENCOUNTER → 2024-03-21 | Outpatient (CLI) | payer OTHER, SELFPAY ==
--- NOTE | 2024-03-21 14:32 | NEURO_ITS ---
NCS and/or EMG Patient Report Ordering Doctor: Edgar Reyes DATE OF SERVICE: 03/21/24 Danielle presents electrodiagnostic testing of the upper limbs. She reports numbness and tingling in both hands which has progressively worsened. Electrodiagnostic findings: Right median motor nerve demonstrates prolonged dis arleen latency with normal amplitude and reduced conduction velocity. Left median motor nerve demonstrates prolonged distal latency with normal amplitude and reduced conduction velocity. Ulnar motor response is within normal limits bilaterally. Prolonged right and left median F?wave. Prolonged median sensory latency at the wrist bilaterally. Needle EMG testing was performed the upper limbs. All muscles tested showed no evidence of denervation with normal motor unit action potentials. Electrodiagnostic impression: This is an abnormal study in the upper limbs 1. Electrodiagnostic findings demonstrate bilateral median mononeuropathy. This is consistent with a mild to moderate bilateral carpal tunnel syndrome. Multi Select Codes Neurology Neurology Interp Codes: 51089-77 Musc test done w/n test comp (interp) (2) and 09112-03 Nrv cndj test 9-10 studies (interp)
== END | disposition home or self-care (01) ==
PROVIDERS: PCP Family Medicine; Referring Provider Student in an Organized Health Care Education/Training Program; Visit Provider Student in an Organized Health Care Education/Training Program
DX: R20.2 Paresthesia of skin (principal)
CPT/HCPCS: 95886; 95911

== ENCOUNTER → 2024-08-08 | Outpatient (CLI) | payer OTHER, SELFPAY | END | disposition home or self-care (01) | PROVIDERS: PCP Family Medicine; Referring Provider Urology; Visit Provider Urology | DX: N39.0 Urinary tract infection, site not specified (principal) | CPT/HCPCS: 87086; 87088 ==

== ENCOUNTER 2024-08-16 10:13 | Day surgery (SDC) | payer OTHER, SELFPAY ==
[2024-08-16] VITALS (8 sets, daily range): BP systolic 142–163; BP diastolic 68–84; PULSE 52–84; RESP 16; TEMP 36.3–36.8; O2SAT 95–100; BMI 32.2
--- NOTE | 2024-08-16 10:51 | PCM.PRE.AN2 ---
ASA Classification* ASA Classification ASA Classification: 2 (SEE WRITTEN PRE ANESTHESIA RECORD FOR FULL ASSESSMENT) Assessment & Plan Anesthesia* Anesthesia Assessment Anesthesia Assessment: Discussed sedation and/or anesthesia options, risks, benefits, and alternatives with patient/parents/legal guardian/POA. Questions invited. The patient/parents/legal guardian/POA seems to understand and agrees to proceed with anesthesia plan. Reviewed the physical assessment, medical history, allergy history and patient home medications list prior to surgery/procedure/anesthetic and documented any changes. Performed airway and anesthesia risk assessments. Anesthesia Type Anesthesia Type: General (SEE WRITTEN PRE ANESTHESIA RECORD FOR FULL ASSESSMENT) Anesthesia Focused Assessment* Airway Assessment Mouth opens: >3 cm Mallampati Score: II Focused Labs Anesthesia Preop lab: CBC WBC 5.8 K/mm3 (4.4-11.0) 04/08/20 09:33 RBC 4.31 M/mm3 (4.2-5.4) 04/08/20 09:33 Hgb 12.4 g/dL (12.0-15.0) 04/08/20 09:33 Hct 39.6 % (37-47) 04/08/20 09:33 Plt Count 293 K/mm3 (150-450) 04/08/20 09:33 CHEMISTRY Potassium 4.2 mmol/L (3.5-5.1) 09/01/17 05:46 Sodium 139 mmol/L (136-145) 09/01/17 05:46 BUN 11 mg/dL (7-18) 09/01/17 05:46 Creatinine 0.90 mg/dL (0.55-1.02) 09/01/17 05:46 Glucose 111 mg/dL (70-110) H 09/01/17 05:46 POC Glucose 96 mg/dL (74-106) 09/02/22 11:15 TSH 0.67 uIU/mL (0.358-3.74) 08/05/17 15:10 COAG PT 12.6 SECONDS (11.7-14.9) 08/05/17 15:10 Pre-Assessment Diagnosis/Proposed Procedure Planned Operative Procedure(s): EXCISION VAGINAL MESH Anesthesia History Anesthesia History - client experience manager: Anesthesia History - client experience manager Hx Hospitalization No 08/09/24 12:51 Any Problems With Anesthesia Yes: N,V 08/09/24 12:51 Cholinesterase deficiency No 08/09/24 12:51 You/Your Family Experience No 08/09/24 12:51 fever (hyperthermia) with Relationship Recent Exposure to Contagious No 09/02/22 11:22 Disease Does patient have nerve No 08/09/24 12:51 stimulator Patient instructed to have device shut off --Does patient have Pacemaker or ICD? When Was Last Pacemaker Check QUESTION #4 FULL TEXT: You/Your Family Experience fever (hyperthermia) with Anesthesia Last Oral Intake Last Oral intake: Last Oral Intake NPO since Meds taken in AM with sips of water? Meds patient instructed to take am of surgery PONV PONV - client experience manager: PONV - client experience manager Female Yes 08/09/24 12:51 HX of Motion Sickness Yes 08/09/24 12:51 HX of N/V After Surgery Yes 08/09/24 12:51 Non-Smoker Yes 08/09/24 12:51 Duration of Surgery greater Yes 08/09/24 12:51 than 60 minutes Number of Risk Factors 5 08/09/24 12:51 PONV Score Severe Risk 08/09/24 12:51 Height & Weight Height & Weight: Anesthesia: Height & Weight Height 5 ft 8 in 09/02/22 11:22 Respiratory Assessment Respiratory Assessment - client experience manager: Respiratory Tract Infection Hx - client experience manager Hx Respiratory Tract Infection No 08/09/24 12:51 STOP Sleep Apnea STOP Sleep Apnea - client experience manager: STOP Sleep Apnea - client experience manager Hx Hypertension Yes: CONTROLLED WITH MED 08/09/24 12:51 Hx Sleep Apnea No 08/09/24 12:51 CPAP BIPAP Do you snore loudly (louder Yes 08/09/24 12:51 than talking or can be heard Do you often feel tired/ No 08/09/24 12:51 fatigued/ sleepy during daytime? Has anyone observed you stop No 08/09/24 12:51 breathing during sleep? STOP Results Positive 08/09/24 12:51 QUESTION #5 FULL TEXT : Do you snore loudly (louder than talking or can be heard through closed doors)? 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 Specify any problems Hx of Preganancy in last 3 No 08/09/24 12:51 Months Nurse Filling Out Transfusion DSCHRIBER 08/09/24 12:51 & Questions: Date: 08/09/24 08/09/24 12:51 Time: 12:54 08/09/24 12:51 Patient unable to answer at this time (ie. confused, unrespo /Reproduction History /Reproductive History - client experience manager: /Reproductive Hx- client experience manager Hx Now No 08/09/24 12:51 Gestational Age (in weeks): EDC: Hx Hx Para Hx Section SAB No 08/09/24 12:51 Active Medications Active Medications: Current Medications Generic Name Dose Route Start Last Admin Trade Name Freq PRN Reason Stop Dose Admin Cefazolin Sodium 2 gm/ N/A 20 mls @ 400 mls/hr 08/16/24 11:55 IV 08/16/24 11:57 PREOP ONE Lactated Ringer's 1,000 mls @ 15 mls/hr 08/16/24 10:30 IV 08/21/24 23:49 .Q48H [facility] Protocol PFSH Medical History Vaginal erosion due to surgical mesh Post-menopausal Alcohol use Gastric reflux Former smoker Asthma History of rheumatic fever Hypertension Ulcer Hx of blood clots Thyroid disorder Arthritis Dysphagia Chronic coughing Fatigue Vaginal prolapse Snoring Severe vulvar dysplasia Lumbosacral neuritis Disc displacement, lumbar Hypothyroidism DVT (deep venous thrombosis) Diabetes mellitus Valdez's esophageal ulceration Backache, unspecified Acute esophagitis Home Medications ?Medication ?Instructions ?Recorded ?Last Taken ?Type meloxicam 15 mg tablet 15 mg PO DAILY PRN Pain 08/05/17 Unknown History omeprazole 40 mg capsule,delayed 40 mg PO 1700 08/05/17 08/15/24 History release levothyroxine 112 mcg tablet 112 mcg PO DAILY 04/08/20 08/16/24 History (Synthroid) losartan 50 mg tablet 50 mg PO 1200 04/08/20 08/15/24 History gabapentin 300 mg capsule 300 mg PO QHS 04/11/20 08/15/24 History albuterol sulfate 90 mcg/actuation 2 puff inhalation Q4H PRN 01/23/21 Unknown Rx aerosol inhaler shortness of breath or wheezing #1 ea semaglutide 0.25 mg or 0.5 mg (2 0.25 mg subcut FR 08/09/24 08/03/24 History mg/3 mL) subcutaneous pen injector (Ozempic) Allergy/AdvReac Type Severity Reaction Status Date / Time adhesive tape Allergy blisters Verified 08/16/24 10:34 hydromorphone HCl (From Allergy Hives Verified 08/16/24 10:34 Dilaudid) latex Allergy Rash Verified 08/16/24 10:34 Penicillins Allergy Hives Verified 08/16/24 10:34 codeine AdvReac Nausea Verified 08/16/24 10:34 Family History Mother Cataract Cancer Liver Father Diabetes Hypertension Heart disease Cataract Cancer Lung Sister Diabetes DVT (deep venous thrombosis) CVA (cerebral vascular accident) Heart disease Brother Diabetes Aunt Cancer Thyroid Surgical History History of cystoscopy Hx of cataract surgery Hx of shoulder replacement Hx of colonoscopy History of vulvar vestibulectomy History of hysterectomy History of shoulder surgery History of tonsillectomy History of sacrocolpopexy History of esophagogastroduodenoscopy (EGD) biopsy of vulva Social History Smoking Status: Former smoker quit date: 08/15/13 pack-years: 1 Tobacco: How many years used: 25 alcohol intake: current alcohol intake frequency: a few times a week Alcohol type: beer and wine substance use type: does not use caffeine: Yes what type of physical activity do you participate in: other frequency: does not exercise seatbelt use: always Review of Systems (Anesthesia) ROS Narrative System reviewed and no additional complaints, except as documented.
[2024-08-16] MEDS: Lactated Ringers 1,000 ML 15 ML IV (10:54)
[2024-08-16 11:02] LABS: Hemoglobin 11.9 g/dL (12.0-15.0); Mean Corp Hgb Conc 32.2 g/dL (32-36); Mean Corpuscular Volume 83.9 fL (81-99); Mean Platelet Vol. 9.3 fl (6.2-12.0); Platelet Count 291 K/mm3 (150-450); RBC Distribution Width CV 13.7 % (11.6-14.6); RBC Distribution Width SD 42.6 fl (35.1-43.9); Red Blood Count 4.41 M/mm3 (4.2-5.4); White Blood Count 5.8 K/mm3 (4.4-11.0)
[2024-08-16 11:30] LABS: Anion Gap 5 (5-15); BUN 13 mg/dL (7-18); BUN/Creat Ratio 14.5 RATIO (10-20); Chloride 109 mmol/L (98-107); Creatinine, Serum 0.89 mg/dL (0.55-1.02); EST Glomerular Filtration Rate 67 mL/min (>60); Est Glom Filt Rate - Afr Amer 81 mL/min (>60); Estimated Creatinine Clearance 77.86 ml/min; Glucose 89 mg/dL (74-106); Potassium 5.3 mmol/L (3.5-5.1); Sodium Level 140 mmol/L (136-145)
[2024-08-16 11:51] LABS: Bedside Glucose 87 mg/dL (74-106)
--- NOTE | 2024-08-16 11:55 | FORE_PTH ---
PATIENT: RODRÍGUEZ KOWALSKI [place] [facility] [place][id number] AGE/SX: 68/F ROOM: RE08/16/[address]: Dr. Aranza Richardson MD : 1955 BED: DIS: 08/16/2024 SPEC #: [id number] RECD: 08/16/24 13:59 STATUS: AINSLEY REJaguar #: [id number] ANGELITO: 08/16/24 11:[address]: Aranza Richardson DEPT: SURGICAL PATHOLOGY RECD BY: Katlyn Suarez ENTERED: 08/16/24 14:24 SP TYPE: FOREIGN B OTHR DR: Dr. Gerardo Diana MD Tissues: FOREIGN BODY Procedures: Surgery Specimen Level I HEADER OPERATION: Excisional vaginal mesh PRE-OP DIAGNOSIS: Exposure of vaginal mesh through vaginal wall TISSUE SUBMITTED: Vaginal mesh GROSS DIAGNOSIS Pieces of mesh, clinically vaginal mesh (gross only). EDWARD. 08/16/2024 MICROSCOPIC DESCRIPTION Slides are reviewed. GROSS DESCRIPTION Received in fixative is one container labeled with the patient's name and designated Vaginal mesh. The specimen consists of multiple pieces of mesh measuring in aggregate 1.5 x 1.0 x 0.1cm. The specimen is for gross identification only. 08/16/2024 CPT:56001
[2024-08-16] MEDS: Cefazolin 2 GM in Syringe IV (12:06)
--- NOTE | 2024-08-16 12:07 | PCM.OPRPT ---
Problems Associated Problem List Diagnoses (1) Vaginal erosion due to surgical mesh: Operative Report (Standard) Operative Information Surgery/Procedure Performed: excision exposed vaginal mesh Surgeon: Aranza Richardson Date of Procedure: 08/16/24 Procedure Start Time: 12:18 Procedure Stop Time: 12:33 Pre-Operative Diagnosis: exposed vaginal mesh Post-Operative Diagnosis: same Select all DRAINS/GRAFTS/IMPLANTS that apply: None Type of Anesthesia: General Estimated Blood Loss: minimal Specimen collected: Yes Description of specimen(s) removed: vaginal mesh Description of surgery: The patient is a 68-year-old female with exposed apical vaginal mesh that presents for excision under anesthesia. Informed consent has been obtained. The patient was taken to the operating room and placed on the operating room table. Anesthesia monitored the head, neck, airway, IV access and vital signs throughout the case. Once anesthesia was appropriate administered, she was placed into Trendelenburg and dorsolithotomy position and was prepped and draped in usual sterile fashion. The mesh was visible at the apex and extending posteriorly up by approximately 1 cm in the midline with a with of exposure of approximately 3 mm. Using a Marika clamp, the mesh was grasped and using Metzenbaums, dissection around the mesh was performed until the posterior mesh was able to be removed. Right at the apex there is a 5 mm mucosal opening with an exposed piece of mesh visible in the center. This mesh was grasped and slight tension was placed on the area and the mesh gave away. This piece was the largest piece removed today and was approximately 8mm in diameter. At this time, there was no further visible or palpable mesh remaining. There was no significant hemorrhage or disruption of the mucosa that required suturing. The patient was then awakened and taken to the recovery room in good condition. There were no complications during this procedure. Surgical Findings: Apical and posterior pelvic floor mesh was visible and palpable and was removed and at the conclusion of the procedure there was no further mesh detected Inspector Repairer project executive: No Complications Complications: No Admit VTE Documentation VTE Present on Admission: Yes VTE Mechan Device Prophylaxis: SCD's VTE Pharm Prophylaxis ordered?: No Reason prophylaxis not ordered: Treatment Not Indicated
--- NOTE | 2024-08-16 12:08 | DCINST_ITS ---
Discharge Instructions Diet Discharge Diet: No restrictions Activity Discharge Activity: May Shower and - (no tub bathing, swimming or hot tubs. ) May resume sexual activity in: 4-6 weeks Dressing / Incision Call your doctor if your incision/area has: Continuous Slow Oozing, Sudden Increased Bleeding, Increased Pain/ Swelling and Foul Smelling Discharge Call your doctor if you observe: Fever of 101 or Higher, Inability to urinate and Inability to have a bowel movement Follow Up Care Please Follow Up With: Aranza Richardson MD When: The office will call her to make follow up arrangements. Test Results: Test results from this visit will be discussed in further detail at your follow- up appointment, if applicable. Discharge Plan Admission Attending Provider: Aranza Richardson Primary Care Provider: Gerardo Diana Instructions Print Language: Armenian Discharge Orders/Prescriptions Prescriptions: New oxycodone-acetaminophen [Percocet] 5-325 mg tablet 1 tab PO Q8H PRN (Reason: pain) 3 Days Qty: 10 0RF Continued levothyroxine [Synthroid] 112 mcg tablet 112 mcg PO DAILY losartan 50 mg tablet 50 mg PO 1200 gabapentin 300 mg capsule 300 mg PO QHS Rx Instructions: FOR 180 DAYS albuterol sulfate 90 mcg/actuation HFA aerosol inhaler 2 puff inhalation Q4H PRN (Reason: shortness of breath or wheezing) Qty: 1 3RF Rx Instructions: administer with spacer meloxicam 15 MG tablet 15 mg PO DAILY PRN (Reason: Pain) omeprazole 40 MG capsule,delayed release(DR/EC) 40 mg PO 1700 Ozempic 0.25 mg or 0.5 mg (2 mg/3 mL) pen injector 0.25 mg subcut FR Referrals / Follow Up: Gerardo Diana MD [Primary Care Provider] - Disposition Disposition (needs filled in before D/C Order can be placed): Home, Self Care
--- NOTE | 2024-08-16 12:43 | PCM.POST.ANE ---
Anesthesia: Postop Eval I Current Vital Signs Temperature: 97.4 F Pulse Rate: 80 Blood Pressure: 159/75 Respiratory Rate: 16 Pulse Ox: 95 Oxygen Delivery Method: Room Air Assessment Airway patent: Yes Spontaneous unlabored respirations: Yes Mental status: Awake nausea: No Vomiting: No Anesthesia Complication: No Fluid Hydration Crystalloid volume administer (ml): 100 Total IV fluid infused: 100 Progress Note Anesthesia document: Postop Eval 1 completed: Yes
--- NOTE | 2024-08-16 12:45 | PCM.POSTANE2 ---
Anesthesia Postop Eval I Sum Postop Eval Completion status Anesthesia document: Postop Eval 1 completed: Yes Anesthesia Postop Eval I Summary Anesthesia Postop Eval I Summary: Anesthesia Postop Eval I: Assessment Summary Airway patent Yes 08/16/24 12:44 Spontaneous unlabored Yes 08/16/24 12:44 respirations Mental status Awake 08/16/24 12:44 nausea No 08/16/24 12:44 Vomiting No 08/16/24 12:44 Anesthesia Postop Eval I: Fluid Summary Crystalloid volume administer 100 08/16/24 12:44 (ml) Colloids volume administered ( ml) Blood Product volume administered (ml) Total IV fluid infused 100 08/16/24 12:44 Anesthesia Postop Eval I: Summary Notes Anesthesia Complication No 08/16/24 12:44 Anesthesia Complication Comment: Post-operative progress note Anesthesia: Postop Eval II Evaluation Mental status: Awake Pain Level: 2 nausea: No Vomiting: No
[2024-08-16] MEDS: Acetaminophen 325 MG Tablet PO (13:50)
[2024-08-16] MEDS: oxyCODONE 5 MG Tablet PO (13:50)
== END 2024-08-16 14:24 | disposition home or self-care (01) ==
LOC: SDC 10:13 → AC 10:14
PROVIDERS: PCP Family Medicine; Referring Provider Urology; Visit Provider Urology
PROC: 0TJB8ZZ Inspection of Bladder, Via Natural or Artificial Opening Endoscopic (ICD-10-PCS; CPT 57288; principal; 2024-08-16 11:45)
DX: T83.721A Exposure of implanted vaginal mesh into vagina, initial encounter (principal); E11.9 Type 2 diabetes mellitus without complications; I10 Essential (primary) hypertension; J45.909 Unspecified asthma, uncomplicated; N76.0 Acute vaginitis; N95.2 Postmenopausal atrophic vaginitis; N94.12 Deep dyspareunia; N35.82 Other urethral stricture, female; Z79.899 Other long term (current) drug therapy; Z87.891 Personal history of nicotine dependence; Z79.51 Long term (current) use of inhaled steroids; X58.XXXA Exposure to other specified factors, initial encounter
CPT/HCPCS: 57295; 00940; 80048; 82962; 85027; 88300; 88305; J7120

== ENCOUNTER 2025-03-07 19:12 | Emergency (ER) | payer OTHER, SELFPAY ==
[2025-03-07 19:13] VITALS: BP 201/137; PULSE 76; RESP 18; TEMP 36.7; O2SAT 100
[2025-03-07 19:15] VITALS: BP 145/117; PULSE 80
[2025-03-07 19:25] VITALS: BMI 32.5
--- NOTE | 2025-03-07 19:41 | EX.ED.DYSGE1 ---
HPI History of Present Illness Chief Complaint: Abd Pain Detail of Chief Complaint: Right flank pain radiating anteriorly to the epigastrium Informant: patient Onset/Context/Timing Onset: Days (Symptoms the past 2 days which has been intermittent and duration of 2 minutes) Context: Sudden Onset Timing: Intermittent Quality: Pain Location: Right flank radiating to the right upper quadrant Current Severity: Mild Maximum Severity: Severe Worsened by: Nothing per patient Relieved by: Nothing Associated Symptoms Associated Symptoms: Nausea and takes her breath away because of the severity Narrative Narrative: Patient is a 69-year-old woman. She is a poor informant. She does have history of obstructive sleep apnea, DVT x 2 that were provoked, thyroid disorder, cystocele (seen by Dr. Aranza Richardson), type 2 diabetes, GERD with Valdez's esophagitis who presents with right flank pain rating anteriorly. When asked if patient has intolerance to greasy or fried foods her response was I do not eat that very often and try not to eat that. When asked again she had the same response. Patient denies dysuria, frequency, urgency or hematuria. She states when this is occurred in the past she was told that her lungs are spasming. She has no history of asthma. Patient denies fever, chills night sweats. Patient denies weight loss. Prior similar symptoms: No Recent Illness/Hospitalization: No PFSH PFSH Medical History Vaginal erosion due to surgical mesh Post-menopausal Alcohol use Gastric reflux Former smoker Asthma History of rheumatic fever Hypertension Ulcer Hx of blood clots Thyroid disorder Arthritis Dysphagia Chronic coughing Fatigue Vaginal prolapse Snoring Severe vulvar dysplasia Lumbosacral neuritis Disc displacement, lumbar Hypothyroidism DVT (deep venous thrombosis) Diabetes mellitus Valdez's esophageal ulceration Backache, unspecified Acute esophagitis Home Medications ?Medication ?Instructions ?Recorded ?Last Taken ?Type meloxicam 15 mg tablet 15 mg PO DAILY PRN Pain 08/05/17 Unknown History omeprazole 40 mg capsule,delayed 40 mg PO 1700 08/05/17 08/15/24 History release levothyroxine 112 mcg tablet 112 mcg PO DAILY 04/08/20 08/16/24 History (Synthroid) losartan 50 mg tablet 50 mg PO 1200 04/08/20 08/15/24 History gabapentin 300 mg capsule 300 mg PO QHS 04/11/20 08/15/24 History albuterol sulfate 90 mcg/actuation 2 puff inhalation Q4H PRN 01/23/21 Unknown Rx aerosol inhaler shortness of breath or wheezing #1 ea semaglutide 0.25 mg or 0.5 mg (2 0.25 mg subcut FR 08/09/24 08/03/24 History mg/3 mL) subcutaneous pen injector (Ozempic) Allergy/AdvReac Type Severity Reaction Status Date / Time adhesive tape Allergy blisters Verified 03/07/25 19:13 hydromorphone HCl (From Allergy Hives Verified 03/07/25 19:13 Dilaudid) latex Allergy Rash Verified 03/07/25 19:13 Penicillins Allergy Hives Verified 03/07/25 19:13 codeine AdvReac Nausea Verified 03/07/25 19:13 Family History Mother Cataract Cancer Liver Father Diabetes Hypertension Heart disease Cataract Cancer Lung Sister Diabetes DVT (deep venous thrombosis) CVA (cerebral vascular accident) Heart disease Brother Diabetes Aunt Cancer Thyroid Surgical History History of cystoscopy Hx of cataract surgery Hx of shoulder replacement Hx of colonoscopy History of vulvar vestibulectomy History of hysterectomy History of shoulder surgery History of tonsillectomy History of sacrocolpopexy History of esophagogastroduodenoscopy (EGD) biopsy of vulva Social History Smoking Status: Former smoker quit date: 08/15/13 pack-years: 1 Tobacco: How many years used: 25 alcohol intake: current alcohol intake frequency: a few times a week Alcohol type: beer and wine substance use type: does not use caffeine: Yes what type of physical activity do you participate in: other frequency: does not exercise seatbelt use: always ROS ROS ED Constitutional Constitutional ED: Denies chills, fever(s), subjective, sweats or weight loss Cardiovascular Cardiovascular: Denies chest pain, orthopnea, palpitations, paroxysmal nocturnal dyspnea or racing heartbeat Respiratory/Chest Respiratory/Chest: Denies cough, dyspnea, dyspnea on exertion, orthopnea, paroxysmal nocturnal dyspnea or sputum Gastrointestinal Gastrointestinal: Reports abdominal pain; Denies constipation, diarrhea, melena or vomiting Genitourinary Genitourinary ED: Denies dysuria, hematuria or urinary frequency Musculoskeletal Musculoskeletal: Denies arthralgias, back pain, myalgias or neck pain Integumentary Denies Abrasions or rash Psychiatric Psychiatric: Denies anxiety or depression Hematologic/Lymphatic Hematologic/Lymphatic: Reports systems reviewed and no addt'l complaints, except as documented EXAM Physical Exam Const Vital Signs: 03/07/25 19:13 03/07/25 19:15 03/07/25 20:00 Temperature 98.1 F Temperature Source Oral Pulse Rate 76 80 61 Respiratory Rate 18 18 Blood Pressure 201/137 H 145/117 H 164/63 H Blood Pressure Mean 158 126 96 Pulse Ox 100 100 Oxygen Delivery Method Room Air Room Air Positive well nourished and well developed Constitutional Narrative: BMI is 32.5. General Appearance ED: well developed and NAD; Negative for cyanotic, diaphoretic or pallor HEENT Reports moist mucous membranes HEENT Narrative: Head is atraumatic normocephalic. Ears normal. Nares patent. Eyes PERRL and EOMs intact bilaterally General Eye ED: Negative for pale conjunctiva or scleral icterus Neck no lymphadenopathy and no JVD Chest Wall inspection of chest normal and palpation of chest normal Resp normal respiratory effort and clear to auscultation bilaterally Cardio regular rate, regular rhythm, S1 normal heart sound, S2 normal heart sound and no murmurs GI normal to inspection, nondistended, normoactive bowel sounds, non-distended and no masses; Negative for non-tender or hepatosplenomegaly GI Narrative: There is some discomfort with palpation right upper quadrant with a negative clinical Duenas sign. Inspection: Negative for abdominal distention Auscultation: normoactive bowel sounds Palpation: soft and tender RUQ Extremity normal to inspection General Extremety ED: Negative for edema or tenderness General Extremity: Negative for edema Neuro oriented x3 and CN's II-XII intact bilaterally Sensorium / Orientation: alert Psych mental status grossly normal Skin no rashes or lesions noted, no wounds and skin turgor normal General Skin Exam: Negative for jaundice or pallor MDM MDM MDM Narrative Medical decision making narrative: Differential diagnosis would be atypical presentation for ureteral/renal calculus with obstruction, suspect cholelithiasis. Patient had CT of the abdomen in 2019 which revealed fatty liver. CT May 2022 revealed fatty liver and multiple small gallstones. Other causes would be lower lobe pneumonia which is unlikely since she has no respiratory symptoms other than it takes her breath away when the pain gets worse. I do not believe this is anything related to her lungs nor do I believe this is due to esophageal spasm. My suspicion is this has to do with her history of cholelithiasis. She last ate at 1 PM. She had an apple with peanut butter. She did not have dinner. History & Record Review Additional record(s) reviewed:: Prior outpatient record and Prior labs Lab Data Attestation: I reviewed the patient's lab results. Lab results narrative: CBC is unremarkable. BMP is unremarkable. Glucose is slightly elevated 109. Alkaline phosphatase is elevated. Urine reveals pyuria without bacteria. Nitrites negative. Macro was positive for protein, occult blood and leukoesterase and negative for nitrites. Culture was not sent since she has no urinary symptoms. Since patient still having right upper quadrant discomfort we will obtain ultrasound to see if there is any evidence of gallbladder wall thickening or evidence of cholecystitis. Labs: Laboratory Results - last 24 hr 03/07/25 03/07/25 19:30 19:55 WBC 9.3 RBC 4.60 Hgb 12.6 Hct 38.6 MCV 83.9 MCH 27.4 MCHC 32.6 RDW Std Deviation 41.5 RDW Coeff of Mary 13.5 Plt Count 315 MPV 9.1 Immature Gran % (Auto) 0.100 Neut % (Auto) 49.5 Lymph % (Auto) 39.3 [place] % (Auto) 8.2 Eos % (Auto) 2.4 Baso % (Auto) 0.5 Absolute Neuts (auto) 4.6 Absolute Lymphs (auto) 3.66 Nucleated RBC % 0 Sodium 137 Potassium 4.0 Chloride 100 Carbon Dioxide 22.7 Anion Gap 14 BUN 15 Creatinine 1.09 Estim Creat Clear Calc 62.97 Est GFR (MDRD) Non-Af 56 L BUN/Creatinine Ratio 13.3 Glucose 109 H Calcium 9.6 Total Bilirubin 0.29 AST 23 ALT 17 Alkaline Phosphatase 117 H Total Protein 7.7 Albumin 4.5 Globulin 3.1 Albumin/Globulin Ratio 1.4 Urine Color Straw Urine Clarity Sl. Cloudy Urine pH 7.0 Ur Specific [place] 1.005 Urine Protein 15 H Urine Glucose (UA) Normal Urine Ketones Negative Urine Occult Blood 150 H Urine Nitrite Negative Urine Bilirubin Negative Urine Urobilinogen Normal Ur Leukocyte Esterase 500 H Urine RBC 5-10 SEEN Urine WBC 25-50 SEEN Ur Squamous Epith Cells 0-5 SEEN Urine Bacteria RARE Urine Mucus 0 SEEN Radiography Diagnostic Testing: Clinical Impression(s) from Imaging Studies Gallbladder Ultrasound 03/07/25 20:34 IMPRESSION: 1. Cholelithiasis, without current evidence of acute cholecystitis. 2. Hepatic steatosis. Reading Location: [facility] Multiple gallstones noted. Common bile duct is within normal range. Gallbladder wall is 3.2 mm in thickness. There is no pericholecystic fluid per my review. Awaiting formal radiology review, 2134 Treatment and Re-Evaluation :: Patient and were made aware of her findings. I was made aware by the that she has bangura every morning and eats a lot of peanut butter. Patient was referred to Dr. Radha Pyle who is on-call for general surgery. Discharge Plan Triage Chief Complaint: Abd Pain ED Provider: Ervin Campuzano Dx/Rx/DC Orders Clinical Impression: Biliary colic symptom, Thyroid disorder, Diabetes mellitus, Cholelithiasis, Elevated blood-pressure reading without diagnosis of hypertension Instructions: ED Gallstones with Biliary Colic Prescriptions: No Action levothyroxine [Synthroid] 112 mcg tablet 112 mcg PO DAILY losartan 50 mg tablet 50 mg PO 1200 gabapentin 300 mg capsule 300 mg PO QHS Rx Instructions: FOR 180 DAYS albuterol sulfate 90 mcg/actuation HFA aerosol inhaler 2 puff inhalation Q4H PRN (Reason: shortness of breath or wheezing) Qty: 1 3RF Rx Instructions: administer with spacer meloxicam 15 MG tablet 15 mg PO DAILY PRN (Reason: Pain) omeprazole 40 MG capsule,delayed release(DR/EC) 40 mg PO 1700 Ozempic 0.25 mg or 0.5 mg (2 mg/3 mL) pen injector 0.25 mg subcut FR Primary Care Provider: Gerardo Diana Referrals: Gerardo Diana MD [Primary Care Provider] - Radha Pyle MD [Med Staff - Active Staff] - 5-7 Days Print Language: Dominican Disposition Disposition: Home, Self Care
[2025-03-07 19:48] LABS: Absolute Lymphocyte Count 3.66 X10^3/uL (0.83-4.51); Absolute Neutrophil Count 4.6 X10^3/uL (2.0-7.7); Basophil# 0.05 X10^3/uL; Basophil% 0.5 % (0-1); Eosinophil# 0.22 X10^3/uL; Eosinophils% 2.4 % (0-5); Hematocrit 38.6 % (37-47); Hemoglobin 12.6 g/dL (12.0-15.0); Lymphocyte # 3.66 X10^3/ul (0.83-4.51); Lymphocyte % 39.3 % (19-41); Mean Corp Hgb Conc 32.6 g/dL (32-36); Mean Corpuscular Hgb 27.4 pg (27.0-32.0); Mean Corpuscular Volume 83.9 fL (81-99); Mean Platelet Vol. 9.1 fl (6.2-12.0); Monocyte# 0.76 X10^3/uL; Monocyte% 8.2 % (0-10); NRBC Flagged by Analyzer 0 % (0-5); Neutrophil # 4.62 X10^3/uL (2.7-7.7); Neutrophil % 49.5 % (47-70); Platelet Count 315 K/mm3 (150-450); RBC Distribution Width CV 13.5 % (11.6-14.6); RBC Distribution Width SD 41.5 fl (35.1-43.9); White Blood Count 9.3 K/mm3 (4.4-11.0)
[2025-03-07 20:00] VITALS: BP 164/63; PULSE 61; RESP 18; O2SAT 100
[2025-03-07 20:07] LABS: Mucous, Urine 0 SEEN /hpf (<or=2+)
[2025-03-07 20:09] LABS: Color, Urine Straw (Yellow); Glucose, Dipstick Normal (Normal); Ketone-Dipstick Negative (Negative); Leukocyte Esterase-Dipstick 500 /ul (Negative); Nitrite-Dipstick Negative (Negative); Occult Blood-Urine 150 /ul (Negative); Protein-Dipstick 15 mg/dl (Negative); Specific Gravity, Urine 1.005 (1.002-1.030); Urine Bilirubin Dipstick Negative (Negative); Urine Clarity Sl. Cloudy (Clear); Urine Urobilinogen Normal (Normal)
[2025-03-07 20:21] LABS: ALB/GLOB Ratio 1.4 RATIO (0.9-2.4); AST(SGOT) 23 U/L (<=31); Alanine Aminotransfer ALT/SGPT 17 U/L (<=34); Albumin, Serum 4.5 g/dL (3.4-4.8); Alkaline Phosphatase 117 U/L (35-104); Anion Gap 14 (5-15); BUN 15 mg/dL (4-19); BUN/Creat Ratio 13.3 RATIO (10-20); Calcium,Total 9.6 mg/dL (7.6-11.0); Carbon Dioxide 22.7 mmol/L (21.0-32.0); Chloride 100 mmol/L (98-108); Creatinine, Serum 1.09 mg/dL (0.70-1.20); EST Glomerular Filtration Rate 56 (>60); Estimated Creatinine Clearance 62.97 ml/min (50-250); Globulin 3.1 g/dL (2.2-4.2); Glucose 109 mg/dL (70-99); Protein, Total 7.7 g/dL (5.9-8.4); Sodium Level 137 mmol/L (133-145); Total Bilirubin 0.29 mg/dL (0.00-1.30)
[2025-03-07 20:27] LABS: White Blood Cells 25-50 SEEN /hpf (0-5)
[2025-03-07 20:29] LABS: Bacteria RARE /hpf (None Seen); Red Blood Cells-Urine 5-10 SEEN /hpf (0-5); Squamous Epithelial Cells - UA 0-5 SEEN /hpf (5-10)
--- NOTE | 2025-03-07 20:34 | US_ITS ---
PROCEDURE: GALLBLADDER 03/07/2025 REASON FOR EXAM: PAIN COMPARISON: None FINDINGS: Liver: Normal size measuring 16.2 cm in length. Diffusely echogenic suggesting fatty infiltration. Gallbladder: Multiple echogenic gallstones are identified. No pericholecystic fluid or wall thickening. Sonographic Duenas's sign is negative per technologist report. Gallbladder measures 4.6 cm in length. Common bile duct: Normal measuring 5 mm. Pancreas: Visualized portions are unremarkable. The distal body and tail are obscured by bowel gas. Right kidney: Measures 10.1 x 3.9 x 4.4 cm. No hydronephrosis or stone identified. US/Gallbladder IMPRESSION: 1. Cholelithiasis, without current evidence of acute cholecystitis. 2. Hepatic steatosis. Reading Location: [id number]
[2025-03-07 22:03] VITALS: BP 147/62; PULSE 62; RESP 19; TEMP 36.6; O2SAT 100
== END 2025-03-07 22:04 | disposition home or self-care (01) ==
PROVIDERS: Emergency Provider Emergency Medicine; PCP Family Medicine; Visit Provider Emergency Medicine
DX: K80.20 Calculus of gallbladder without cholecystitis without obstruction (principal); E11.9 Type 2 diabetes mellitus without complications; E07.9 Disorder of thyroid, unspecified; I10 Essential (primary) hypertension; R03.0 Elevated blood-pressure reading, without diagnosis of hypertension; Z79.85 Long-term (current) use of injectable non-insulin antidiabetic drugs; Z79.890 Hormone replacement therapy; Z79.899 Other long term (current) drug therapy; Z87.891 Personal history of nicotine dependence
CPT/HCPCS: 76705; 80053; 81001; 85025; 99282; A4216

== ENCOUNTER 2025-05-09 05:55 | Day surgery (SDC) | payer OTHER, SELFPAY ==
[2025-05-09] VITALS (15 sets, daily range): BP systolic 135–189; BP diastolic 67–91; PULSE 61–78; RESP 16–20; TEMP 36.1–36.9; O2SAT 94–99; BMI 31.3
--- NOTE | 2025-05-09 06:06 | EKG12_ITS ---
Test Reason : PRE OP Blood Pressure : */* mmHG Vent. Rate : 61 BPM Atrial Rate : 61 BPM P-R Int : 164 ms QRS Dur : 70 ms QT Int : 418 ms P-R-T Axes : 79 77 79 degrees QTcB Int : 420 ms Normal sinus rhythm with sinus arrhythmia Low voltage QRS Septal infarct (cited on or before 09-Apr-2002) Abnormal ECG When compared with ECG of 05-Aug-2017 13:55, No significant change was found Confirmed by HARRIS PUENTE, CATERINA ([id number]), rewrite editor TRINIDAD ELLSWORTH ([id number]) on 05/13/2025 1:05:37 PM Referred By: Trell Roy Confirmed By: CATERINA IGLESIAS MD
[2025-05-09] MEDS: Lactated Ringers 1,000 ML 15 ML IV (06:35)
[2025-05-09] MEDS: INDOCYANINE GREEN 3.75 MG in Syringe 1.5 ML 999 MG IV (06:40)
--- NOTE | 2025-05-09 06:59 | HP.PCM_ITS ---
History and Physical Date of Admission: 05/09/25 Intake Vital Signs 03/07/2519:13 03/26/2508:30 Height 5 ft 9 in 5 ft 9 in Weight: 225 lb BMI 33.2 BP 126/79 H Blood Pressure Location Rt brachial Position Sitting Respiration 17 Pulse 60 Pulse Source Monitor Pulse Oximetry (%) 97 Oxygen Delivery Method room air Intake Visit Reasons: GALLBLADDER Chief Complaint: gallbladder Is patient in pain?: No Allergies adhesive tape Allergy (Verified 03/26/25 08:31) blistershydromorphone HCl (From Dilaudid) Allergy (Verified 03/26/25 08:31) Hiveslatex Allergy (Verified 03/26/25 08:31) RashPenicillins Allergy (Verified 03/26/25 08:31) Hivescodeine Adverse Reaction (Verified 03/26/25 08:31) Nausea Medications Medication Instructions Recorded Confirmed Type meloxicam 15 mg tablet 15 mg PO DAILY PRN Pain 08/05/17 5 History omeprazole 40 mg capsule,delayed 40 mg PO 1700 08/05/17 03/26/25 History release levothyroxine 112 mcg tablet 112 mcg PO DAILY 04/08/20 03/26/25 Histo ry (Synthroid) losartan 50 mg tablet 50 mg PO 1200 04/08/20 03/26/25 History gabapentin 300 mg capsule 300 mg PO QHS 04/11/20 03/26/25 History albuterol sulfate 90 mcg/actuation 2 puff inhalation Q4H PRN 01/23/2103/26 Rx aerosol inhaler shortness of breath or wheezing #1 ea semaglutide 0.25 mg or 0.5 mg (2 0.5 mg subcut FR 03/26/25 03/26/25 Histo ry mg/3 mL) subcutaneous pen injector (Ozempic) Have you fallen in the past year?: No PFSH Medical History Vaginal erosion due to surgical mesh Post-menopausal Alcohol use Gastric reflux Former smoker Asthma History of rheumatic fever Hypertension Ulcer Hx of blood clots Thyroid disorder Arthritis Dysphagia Chronic coughing Fatigue Vaginal prolapse Snoring Severe vulvar dysplasia Lumbosacral neuritis Disc displacement, lumbar Hypothyroidism DVT (deep venous thrombosis) Diabetes mellitus Valdez's esophageal ulceration Backache, unspecified Acute esophagitis Surgical History History of cystoscopy Hx of cataract surgery Hx of shoulder replacement Hx of colonoscopy History of vulvar vestibulectomy History of hysterectomy History of shoulder surgery History of tonsillectomy History of sacrocolpopexy History of esophagogastroduodenoscopy (EGD) biopsy of vulva Family History (Updated 03/26/25 @ 08:30 by Michelle Brooks) Mother Cataract Cancer Liver Father Diabetes Hypertension Heart disease Cataract Cancer LungSister Diabetes DVT (deep venous thrombosis) CVA (cerebral vascular accident) Heart disease Colon cancerBrother DiabetesAunt Cancer Thyroid Social History Smoking Status: Former smoker quit date: 08/15/13 pack-years: 1 Tobacco: How many years used: 25 alcohol intake: current alcohol intake frequency: a few times a week Alcohol type: beer and wine substance use type: does not use caffeine: Yes what type of physical activity do you participate in: other frequency: does not exercise seatbelt use: always HPI HPI HPI: Patient is a 69-year-old female here with cholelithiasis. Patient reports for several months she has been having nausea and lately she has been having attacks where anything greasy causes her pain in the right upper quadrant. She denies nausea or vomiting or fevers or chills. ROS General General: No weight change, appetite, fatigue, colon cancer, breast cancer or weakness HEENT HEENT: No difficulty swallowing, eye injury, eye surgery, swollen glands or hoarseness Endo Endocrine: Yes thyroid disease and diabetes mellitus; No thyroid cancer, Hair loss, heat intolerance or cold intolerance Skin Skin: No rash or changing moles Musc Musculoskeletal: Yes back problems and arthritis; No rheumatoid arthritis, gout or joint pain Cardio Cardiovascular: Yes high blood pressure; No murmur, pacemaker, heart disease, atrial fibrillation, heart attack, heart stent, palpitations, shortness of breath with exertion or chest pain Psych Psychiatric: No depression, anxiety or hearing voices Resp Respiratory: No shortness of breath, No sleep apnea, No cough, No COPD, Yes asthma, No emphysema and No wheezing Gastro Gastrointestinal: No abdominal pain, Yes nausea or vomiting, No diarrhea, Yes constipation, No blood in stool, Yes acid reflux, No hemorrhoids, No ulcers, Yes gallbladder problem and Yes black,tarry stools Additional Details: takes pepto at times and Jaime Hematologic: No blood thinners, No blood disorders, No bleeding, No anemia and Yes blood clots Neuro Neurologic: No system reviewed and no additional complaints, except as documented, No as per HPI, No abnormal gait, No abnormal hearing, No abnormal movements, No abnormal speech, No behavioral changes, No burning sensations, No confusion, No convulsions, No disequilibrium, No dizziness, No localized weakness, No frequent falls, No headache(s), No lack of coordination, No loss of vision, No memory loss, No numbness, No other visual disturbances, No radicular pain, No restless legs, No sensory deficit, No syncope, No tingling, No tremor(s), No weakness and No other Exam Const General: cooperative Orientation: alert and oriented x3 HENMT Head: normal to inspection Neck Neck: normal visual inspection and full ROM Chest Chest palpation & inspection: normal inspection of the chest Resp Effort & Inspection: normal respiratory effort Auscultation: clear to auscultation bilaterally Cardio Rate: regular rate Rhythm: regular rhythm GI Inspection: non-distended Palpation: soft and nontender Skin General: no rashes or lesions noted Neuro General: patient alert and patient oriented x3 Extrem General: full ROM Psych Appearance: grossly normal Mental Status: mental status grossly normal Assessment and Plan Assessment and Plan (1) Gallbladder calculus: Status: Acute Plan: The patient has several gallstones on ultrasound. I reviewed her images with her. I recommended laparoscopic cholecystectomy. I discussed robotic assisted laparoscopic cholecystectomy with her. I discussed the procedure in detail with the patient. I discussed the risks, benefits, and alternatives of the procedure. I discussed the risks including but not limited to bleeding, infe ction, injury to surrounding organs such as the liver, bile duct, bowels. I did discuss the possibility of having to convert to an open procedure as well as the possibility that if any injuries occurred this may necessitate further surgery at a tertiary care center. Trell Roy MD Pager: [facility] [address] [place] [address], [address] [place] [address] Office: I have examined the patient and the H&P has been reviewed. There are no clinical changes since date of exam.
--- NOTE | 2025-05-09 07:20 | PCM.PRE.AN2 ---
ASA Classification* ASA Classification ASA Classification: 3 Assessment & Plan Anesthesia* Anesthesia Assessment Anesthesia Assessment: Discussed sedation and/or anesthesia options, risks, benefits, and alternatives with patient/parents/legal guardian/POA. Questions invited. The patient/parents/legal guardian/POA seems to understand and agrees to proceed with anesthesia plan. Reviewed the physical assessment, medical history, allergy history and patient home medications list prior to surgery/procedure/anesthetic and documented any changes. Performed airway and anesthesia risk assessments. Anesthesia Type Anesthesia Type: General Anesthesia Focused Assessment* Temperature: 98.5 F Pulse Rate: 61 Blood Pressure: 154/71 Respiratory Rate: 18 Pulse Ox: 97 Airway Assessment Mouth opens: >3 cm Mallampati Score: II Teeth Condition: Intact Neck Range of motion (ROM): Full ROM Comment: May need video laryngoscopy Labs Anesthesia Preop lab: CBC WBC 9.3 K/mm3 (4.4-11.0) 03/07/25 19:03/07/25 RBC 4.60 M/mm3 (4.2-5.4) 03/07/25 19:30 03/07/25 Hgb 12.6 g/dL (12.0-15.0) 03/07/25 19:30 03/07/25 Hct 38.6 % (37-47) 03/07/25 19:30 03/07/25 Plt Count 315 K/mm3 (150-450) 03/07/25 19:30 03/07/25 CHEMISTRY Potassium 4.0 mmol/L (3.3-5.1) 03/07/25 19:30 03/07/25 Sodium 137 mmol/L (133-145) 03/07/25 19:30 03/07/25 BUN 15 mg/dL (4-19) 03/07/25 19:30 03/07/25 Creatinine 1.09 mg/dL (0.70-1.20) 03/07/25 19:30 03/07/25 Glucose 109 mg/dL (70-99) H 03/07/25 19:30 03/07/25 POC Glucose 87 mg/dL (74-106) 08/16/24 10:50 08/16/24 TSH 0.539 uIU/mL (0.300-4.200) 04/25/25 06:19 04/25/25 COAG PT 12.6 SECONDS (11.7-14.9) 08/05/17 15:10 08/05/17 Pre-Assessment Diagnosis/Proposed Procedure Planned Operative Procedure(s): ROBOTIC CHOLECYSTECTOMY Anesthesia History Anesthesia History - material handler: Anesthesia History - material handler Hx Hospitalization No 04/24/25 08:54 Any Problems With Anesthesia Yes: N,V 04/24/25 08:54 Cholinesterase deficiency No 04/24/25 08:54 You/Your Family Experience No 04/24/25 08:54 fever (hyperthermia) with Relationship Recent Exposure to Contagious No 05/09/25 06:25 Disease Does patient have nerve No 04/24/25 08:54 stimulator Patient instructed to have device shut off --Does patient have Pacemaker or ICD? When Was Last Pacemaker Check QUESTION #4 FULL TEXT: You/Your Family Experience fever (hyperthermia) with Anesthesia Last Oral Intake Last Oral intake: Last Oral Intake NPO since 05:00 05/09/25 06:25 Meds taken in AM with sips of Yes 05/09/25 06:25 water? Meds patient instructed to synthroid 05/09/25 06:25 take am of surgery PONV PONV - material handler: PONV - material handler Female Yes 04/24/25 08:54 HX of Motion Sickness Yes 04/24/25 08:54 HX of N/V After Surgery Yes 04/24/25 08:54 Non-Smoker Yes 04/24/25 08:54 Duration of Surgery greater Yes 04/24/25 08:54 than 60 minutes Number of Risk Factors 5 04/24/25 08:54 PONV Score Severe Risk 04/24/25 08:54 Height & Weight Height & Weight: Anesthesia: Height & Weight Height 5 ft 10 in 05/09/25 06:25 Weight: 99 kg 05/09/25 06:25 Body Mass Index (BMI) 31.3 05/09/25 06:25 Respiratory Assessment Respiratory Assessment - material handler: Respiratory Tract Infection Hx - material handler Hx Respiratory Tract Infection No 04/24/25 08:54 STOP Sleep Apnea STOP Sleep Apnea - material handler: STOP Sleep Apnea - material handler Hx Hypertension Yes: CONTROLLED WITH MED 04/24/25 08:54 Hx Sleep Apnea No 04/24/25 08:54 CPAP BIPAP Do you snore loudly (louder Yes 04/24/25 08:54 than talking or can be heard Do you often feel tired/ No 04/24/25 08:54 fatigued/ sleepy during daytime? Has anyone observed you stop No 04/24/25 08:54 breathing during sleep? STOP Results Positive 04/24/25 08:54 QUESTION #5 FULL TEXT : Do you snore loudly (louder than talking or can be heard through closed doors)? Tobacco Use History Tobacco Use History - material handler: Tobacco Use History - material handler Tobacco Use Smoking Status Former smoker 04/24/25 08:54 Hx Tobacco Use Yes 04/24/25 08:54 Years Smoking Packs Smoked per Day Smoking Cessation Date was Yes - quit smoking within 15 04/24/25 08:54 within the last 15 years years Hx Smoking Cessation Date 10/17/11 04/24/25 08:54 Hx Smoking Cessation No 04/24/25 08:54 Counseling Hematologic Medial History Hematologic Hx - material handler: Hematologic Medical Hx - die welder Hx of Blood Transfusion No 04/24/25 08:54 Hx of Transfusion in last 3 No 04/24/25 08:54 Months Date of Last Transfusion (if within last 3 months) Ever experience any problems No 04/24/25 08:54 with transfusion(s)? Specify any problems Hx of Preganancy in last 3 No 04/24/25 08:54 Months Nurse Filling Out Transfusion DSCHRIBER 04/24/25 08:54 & Questions: Date: 04/24/25 04/24/25 08:54 Time: 08:56 04/24/25 08:54 Patient unable to answer at this time (ie. confused, unrespo /Reproduction History /Reproductive History - material handler: /Reproductive Hx- material handler Hx Now No 04/24/25 08:54 Gestational Age (in weeks): EDC: Hx Hx Para Hx Section SAB No 04/24/25 08:54 Active Medications Active Medications: Current Medications Generic Name Dose Route Start Last Admin Trade Name Freq PRN Reason Stop Dose Admin Clindamycin Phosphate 900 mg in 50 mls @ 75 mls/hr 05/09/25 07:30 Cleocin IV 05/09/25 08:09 INTRAOP ONE Lactated Ringer's 1,000 mls @ 15 mls/hr 05/09/25 06:15 05/09/25 06:35 IV 15 mls/hr .Q48H UGO Administration PFSH Medical History History of steroid therapy Diabetes Restless legs Injury of back Injury of head and neck Dietary restriction Leg cramps History of edema Post-menopausal Alcohol use Gastric reflux Former smoker Asthma History of rheumatic fever Hypertension Hx of blood clots Thyroid disorder Dysphagia Chronic coughing Fatigue Vaginal prolapse Snoring Severe vulvar dysplasia Lumbosacral neuritis Disc displacement, lumbar DVT (deep venous thrombosis) Diabetes mellitus Valdez's esophageal ulceration Backache, unspecified Acute esophagitis Home Medications Medication Instructions Recorded Last Taken Type meloxicam 15 mg tablet 15 mg PO DAILY PRN Pain 08/05/17 Unknown History omeprazole 40 mg capsule,delayed 40 mg PO 1700 08/05/17 08/15/24 History release levothyroxine 112 mcg tablet 112 mcg PO DAILY 04/08/20 05/09/25 05:00 History (Synthroid) losartan 50 mg tablet 50 mg PO 1200 04/08/20 08/15/24 History gabapentin 300 mg capsule 300 mg PO QHS 04/11/20 08/15/24 History albuterol sulfate 90 mcg/actuation 2 puff inhalation Q4H PRN 01/23/21 Unknown Rx aerosol inhaler shortness of breath or wheezing #1 ea semaglutide 0.25 mg or 0.5 mg (2 0.5 mg subcut FR 03/26/25 04/25/25 History mg/3 mL) subcutaneous pen injector (Ozempic) Allergy/AdvReac Type Severity Reaction Status Date / Time adhesive tape Allergy blisters Verified 05/09/25 06:45 hydromorphone HCl (From Allergy Hives Verified 05/09/25 06:45 Dilaudid) latex Allergy Rash Verified 05/09/25 06:45 Penicillins Allergy Hives Verified 05/09/25 06:45 codeine AdvReac Nausea Verified 05/09/25 06:45 Family History Mother Cataract Cancer Liver Father Diabetes Hypertension Heart disease Cataract Cancer Lung Sister Diabetes DVT (deep venous thrombosis) CVA (cerebral vascular accident) Heart disease Colon cancer Brother Diabetes Aunt Cancer Thyroid Surgical History Hx of cystoscopy History of cystoscopy Hx of cataract surgery Hx of shoulder replacement Hx of colonoscopy History of vulvar vestibulectomy History of hysterectomy History of shoulder surgery History of tonsillectomy History of sacrocolpopexy History of esophagogastroduodenoscopy (EGD) biopsy of vulva Social History Smoking Status: Former smoker quit date: 08/15/13 pack-years: 1 Tobacco: How many years used: 25 alcohol intake: current alcohol intake frequency: a few times a week Alcohol type: beer and wine substance use type: does not use caffeine: Yes what type of physical activity do you participate in: other frequency: does not exercise seatbelt use: always Review of Systems (Anesthesia) ROS Narrative System reviewed and no additional complaints, except as documented.
--- NOTE | 2025-05-09 07:30 | GALL_PTH ---
PATIENT: RODRÍGUEZ KOWALSKI LOC: [facility] – [place] U#:[id number] AGE/SX: 69/F ROOM: RE05/09/[address]: Dr. Trell Roy MD : 1955 BED: DIS: 05/09/2025 SPEC #: [id number] RECD: 05/09/25 10:03 STATUS: AINSLEY REJaguar #: [id number] ANGELITO: 05/09/25 07:[address]: Trell Roy DEPT: SURGICAL PATHOLOGY RECD BY: Chris Ward ENTERED: 05/09/25 13:11 SP TYPE: GOMEZ LEY DR: MD Dr. Gerardo Culver MD Tissues: A - Gallbladder, NOS Procedures: Surgery Specimen Level III HEADER OPERATION: Robotic cholecystectomy PRE-OP DIAGNOSIS: Gallbladder calculus TISSUE SUBMITTED: A- Gallbladder MICROSCOPIC DIAGNOSIS A. Gallbladder, "calculus", cholecystectomy: - Chronic cholecystitis with cholelithiasis. MICROSCOPIC DESCRIPTION Slides are reviewed. GROSS DESCRIPTION A. Received in formalin labeled with the patient's name and date of . Designated as "gallbladder" is a 7.0 x 2.5 x 2.5 cm pink-yellow, mildly fatty and intact gallbladder with attached patent cystic duct (inked black, shaved). A lymph node is not present. Opening reveals light green, tenacious bile and 2, multifaceted choleliths, ranging 1.0 cm to 1.1 cm. The mucosa is hall-green and granular with a maximum wall thickness of 0.1 cm. Cholesterolosis is present. Fisher Eel Spear sections are submitted in 1 cassette. AR 05/09/2025 CPT:80530
--- NOTE | 2025-05-09 08:54 | OP.PCM_ITS ---
Operative Report (Standard) Operative Information Date of Procedure: 05/09/25 Pre-Operative Diagnosis: Cholelithiasis Post-Operative Diagnosis: Same Surgery/Procedure Performed: Robotic assisted laparoscopic cholecystectomy surgery aid: Yes Child Psychometrist: Orly Roman Tasks completed by occupational therapy assistant: Opening & closing and Retracting Type of Anesthesia: General/Regional RN Documented Start/Stop Times: Operation Date: 05/09/25 07:30 Case Time Into Pre-Op 05/09/25 06:02 Out of Pre-Op 05/09/25 07:35 Anesthesia Start 05/09/25 07:42 Into Room 05/09/25 07:42 Procedure Start 05/09/25 08:05 Procedure Start Time: 08:05 Procedure Stop Time: 09:00 Select all DRAINS/GRAFTS/IMPLANTS that apply: None Estimated Blood Loss: 5 Specimen collected: Yes Description of specimen(s) removed: Gallbladder Description of surgery: The patient was brought back to the operating room and general anesthesia was induced. The abdomen was prepped and draped in the usual sterile fashion. A midline incision was made superior to the umbilicus and deepened to the fascia. The fascia was grasped and elevated. A Veress needle was placed into the abdomen and a drop test was performed. The abdomen was then insufflated to 15 mmHg and the Veress needle was removed. An 8 mm port was placed into the abdomen and then the camera was placed into the abdomen. There was no injury from entry. Under direct visualization an 8 mm port was placed in the right upper quadrant and two 8 mm ports were placed in the left upper quadrant. The midline port was upsized to a 12 mm port. Next the patient was placed in steep reverse Trendelenburg and the robot was docked. The graspers were used to retract the gallbladder cephalad. The infundibulum was encountered and dissected free and retracted laterally. Dissection was carried out and critical view was obtained. Next the cystic duct was identified using ICG. The cystic duct was clipped and divided. The cystic artery was then clipped and divided. The gallbladder was then taken off of the gallbladder fossa using electrocautery. There was good hemostasis with no leaking bile. The camera was then moved to a different port and a bag was placed through the midline incision and the gallbladder was placed into the bag. Next the robot was undocked and the gallbladder was removed in the bag. Next using a Dimitris Nuno needle the midline fascia was closed with an 0 Vicryl suture. The ports were then removed and the abdomen was allowed to desufflate. The incisions were injected with local anesthetic and closed with interrupted 4-0 Monocryl sutures. Steri-Strips and bandages were applied. Patient was then awoken and taken to PACU in stable condition and tolerated the procedure well. Surgical Findings: None Complications Complications: No Admit VTE Documentation VTE Mechan Device Prophylaxis: SCD's
--- NOTE | 2025-05-09 09:00 | DCINST_ITS ---
Discharge Instructions Procedure Gallbladder Diet Discharge Diet: Light diet - advance as tolerated Activity Discharge Activity: May Not Drive (for 2-3 days or while taking narcotic pain medications.) and - (Do not drive, work heavy equipment or sign legal documents for 24 hours.) May shower in (days): 1 Lifting Restrictions: 20 lbs for 2 weeks Additional Activity Instructions:: Pain medication may cause nausea. You should typically eat light foods as you take your pain medications. Pain medication may also cause constipation. If this is a problem for you, please discuss with your doctor. Alternate ibuprofen and Tylenol for pain control, oxycodone for breakthrough pain Dressing / Incision Call your doctor if your incision/area has: Continuous Slow Oozing, Sudden Increased Bleeding, Increased Pain/ Swelling, Increased Redness and Foul Smelling Discharge Call your doctor if you observe: Fever of 101 or Higher Suture Line Care: Avoid Pulling/Pushing and Avoid Pinching/Bending Remove Dressing in: 2 days Additional Dressing/Incision Instructions:: Leave operative bandaids on for 2 days. When you remove dressing, leave Steri-Strips on until your follow-up appointment, or until the Steri-Strips fall off on their own. Follow Up Care Please Follow Up With: Trell Roy MD When: Please call to schedule 2 week follow up appointment. [phone] Test Results: Test results from this visit will be discussed in further detail at your follow- up appointment, if applicable. Discharge Plan Admission Attending Provider: Trell Roy Primary Care Provider: Gerardo Diana Consulting Providers: Ashwin Becerra Instructions Print Language: Icelandic Discharge Orders/Prescriptions Prescriptions: New oxycodone 5 mg Tablet 5 - 10 mg PO Q4H PRN PRN (Reason: Pain Score 4-10) 5 Days Qty: 20 0RF No Action levothyroxine [Synthroid] 112 mcg tablet 112 mcg PO DAILY losartan 50 mg tablet 50 mg PO 1200 gabapentin 300 mg capsule 300 mg PO QHS Rx Instructions: FOR 180 DAYS albuterol sulfate 90 mcg/actuation HFA aerosol inhaler 2 puff inhalation Q4H PRN (Reason: shortness of breath or wheezing) Qty: 1 3RF Rx Instructions: administer with spacer meloxicam 15 MG tablet 15 mg PO DAILY PRN (Reason: Pain) omeprazole 40 MG capsule,delayed release(DR/EC) 40 mg PO 1700 Ozempic 0.25 mg or 0.5 mg (2 mg/3 mL) pen injector 0.5 mg subcut FR Referrals / Follow Up: Gerardo Diana MD [Primary Care Provider] - Disposition Disposition (needs filled in before D/C Order can be placed): Home, Self Care
--- NOTE | 2025-05-09 09:15 | PCM.POST.ANE ---
Anesthesia: Postop Eval I Current Vital Signs Temperature: 97.1 F Pulse Rate: 78 Blood Pressure: 148/81 Respiratory Rate: 16 Pulse Ox: 94 Oxygen Delivery Method: Nasal Cannula Oxygen Flow Rate (L/min): 4 Assessment Airway patent: Yes Spontaneous unlabored respirations: Yes Mental status: Asleep nausea: No Vomiting: No Anesthesia Complication: No Fluid Hydration Crystalloid volume administer (ml): 1,400 Total IV fluid infused: 1,400 Progress Note Anesthesia document: Postop Eval 1 completed: Yes
--- NOTE | 2025-05-09 11:41 | POSTOPAN2_ITS ---
Anesthesia Postop Eval I Sum Postop Eval Completion status Anesthesia document: Postop Eval 1 completed: Yes Anesthesia Postop Eval I Summary Anesthesia Postop Eval I Summary: Anesthesia Postop Eval I: Assessment Summary Airway patent Yes 05/09/25 09:16 [email or web address] Spontaneous unlabored Yes 05/09/25 09:16 [email or web address] respirations Mental status Asleep 05/09/25 09:16 [email or web address] nausea No 05/09/25 09:16 [email or web address] Vomiting No 05/09/25 09:16 [email or web address] Anesthesia Postop Eval I: Fluid Summary Crystalloid volume administer 1,400 05/09/25 09:16 [email or web address] (ml) Colloids volume administered ( ml) Blood Product volume administered (ml) Total IV fluid infused 1,400 05/09/25 09:16 [email or web address] [email or web address] Anesthesia Postop Eval I: Summary Notes Anesthesia Complication No 05/09/25 09:16 [email or web address] Anesthesia Complication Comment: Post-operative progress note Anesthesia: Postop Eval II Evaluation Mental status: Awake and Calm Pain Level: 2 nausea: No Vomiting: No Complications Anesthesia Complication: No
--- NOTE | 2025-05-09 11:41 | PCM.POSTANE2 ---
Anesthesia Postop Eval I Sum Postop Eval Completion status Anesthesia document: Postop Eval 1 completed: Yes Anesthesia Postop Eval I Summary Anesthesia Postop Eval I Summary: Anesthesia Postop Eval I: Assessment Summary Airway patent Yes 05/09/25 09:16 PACKER AND [email or web address] [email or web address] Spontaneous unlabored Yes 05/09/25 09:16 PACKER AND [email or web address] [email or web address] respirations Mental status Asleep 05/09/25 09:16 PACKER AND [email or web address] nausea No 05/09/25 09:16 PACKER AND [email or web address] [email or web address] Vomiting No 05/09/25 09:16 PACKER AND [email or web address] [email or web address] Anesthesia Postop Eval I: Fluid Summary Crystalloid volume administer 1,400 05/09/25 09:16 PACKER AND [email or web address] [email or web address] (ml) Colloids volume administered ( ml) Blood Product volume administered (ml) Total IV fluid infused 1,400 05/09/25 09:16 PACKER AND [email or web address] [email or web address] Anesthesia Postop Eval I: Summary Notes Anesthesia Complication No 05/09/25 09:16 PACKER AND [email or web address] [email or web address] Anesthesia Complication Comment: Post-operative progress note Anesthesia: Postop Eval II Evaluation Mental status: Awake and Calm Pain Level: 2 nausea: No Vomiting: No Complications Anesthesia Complication: No
== END 2025-05-09 12:21 | disposition home or self-care (01) ==
LOC: SDC 05:57 → AC 05:58
PROVIDERS: Anesthesiology; PCP Family Medicine; Referring Provider Surgery; Visit Provider Surgery
PROC: 0FT44ZZ Resection of Gallbladder, Percutaneous Endoscopic Approach (ICD-10-PCS; CPT 47562; principal; 2025-05-09 07:10)
DX: K80.20 Calculus of gallbladder without cholecystitis without obstruction (principal); E11.9 Type 2 diabetes mellitus without complications; I10 Essential (primary) hypertension; Z79.85 Long-term (current) use of injectable non-insulin antidiabetic drugs; Z79.899 Other long term (current) drug therapy; Z87.891 Personal history of nicotine dependence
CPT/HCPCS: 47562; S2900; 00790; 36415; 82962; 83036; 84443; 88304; 93005; J2405